=== PATIENT | female | born 1945 | race Caucasian/White ===

== ENCOUNTER 2019-06-13 04:31 | Emergency (ER) | payer OTHER ==
[2019-06-13 04:38] VITALS: BP 146/87; PULSE 81; TEMP 96.9; BMI 23.4
--- NOTE | 2019-06-13 04:38 | PDOC ---
Attending Attestation - Resident Resident Name: Laxmi Ralph - ED Attending Attestation I have performed the following: I have examined & evaluated the patient, The case was reviewed & discussed with the resident, I agree w/resident's findings & plan - HPI HPI: 06/13/19 04:56 Patient pulled out her tach collar; she was in the process of being weaned from the collar. Pt has no other complaints SHe was in the NH for a recent SAH, and right sided paralysis. She has no ability to consuct ADLs. SHe is accompanied by her hudband and paperwork from the NH which is providing some info. - Physicial Exam PE: 06/13/19 04:58 Pt is afebrile Trach ostomy is closed with a fleshy mass of tissue in the center of the hole. Pt will require ENT to place another one. - Medical Decision Making 06/13/19 04:59 We called one of the ENT docs, and they are unavailable to place the trach in. They are requesting that we transfer the patient. 06/13/19 05:00 WE have no ENT union organizer at this hospital/ 06/13/19 23:[address] Ishan DR of the patient at the [facility]. She agrees that pt can return to the NH, as she is breathing fine without the trach collar in place, as pt was supposed to be weaned off the collar. Pt will be seen by ENT at the [facility]. Pt's is ok with this plan. Pt stable for discharge back to the NH
--- NOTE | 2019-06-13 04:40 | PDOC ---
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 at bedside reported they have been trying to wean pt off vent for the last month, and all was well until staff at [facility] accidentally removed the trach. reported he believes the pt's current breathing pattern more labored than usual. He reported they have been keeping her on 5L O2 at [facility]. ROS - cannot perform, pt nonverbal, at bedside not present for event. PE Constitutional: Well-nourished, Well-developed, appearing stated age. HEENT: head is normocephalic, atraumatic. EOMI. PERRLA. Neck: supple. Full ROM. trach site noted, no surrounding erythema, no discharge , no sign of infection. Cardiovascular: regular heart rhythm. no murmurs. no pericardial friction rub. Respiratory: clear to auscultation bilaterally. no crackles, rhonchi or wheezing. no stridor. Gastrointestinal: soft, nontender. normal bowel sounds. no rebound, guarding, masses. Extremities: peripheral pulses intact. no lower extremity edema. Neurological: CN 2-12 grossly intact. moves all four extremities. Psych: awake, alert. follows commands. nonverbal. can shake head yes or no with repeated verbal stimulation. Medical Decision Making - Medical Decision Making 73 year old female with above PMH sent to ED from [facility] for Trach dislodgement. Initial Vital Signs Temp Pulse Resp BP Pulse Ox 96.9 F L 81 16 146/87 95 06/13/19 04:35 06/13/19 04:35 06/13/19 04:35 06/13/19 04:35 06/13/19 04:35 Afebrile. No tachycardia. No tachypnea. Mild hypertension. No hypoxia on room air. Labs ordered: CBC, CMP Imaging ordered: CXR Medications ordered: none Respiratory paged. Trach appears to be too new to replace the tube. Will call Dr. Hamlin to see if he is available. 06/13/19 04:50 Dr. Hamlin reported he is not available to come to ED today to evaluate pt. 06/13/19 05:04 Dr. Olmstead paged. 06/13/19 05:08 Dr. Alvarenga reported pt can be sent back to [facility], will have ENT evaluate her there. informed and agrees with plan for care. He reported he prefers to not replace the tube as she has been doing well without using it and has been progressing with speech and swallowing lately, and he is afraid to set her back with anesthesia. is very anxious, constantly massaging the patient's legs. 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 He reported he feels a lot of guilt and wants to make sure he makes the best decision for the patient and does not want to set her back any further. Risks/benefits discussed of transfer for urgent ENT eval, he reported he prefers to take the pt back to [facility] and have ENT F/U outpatient. Pt to be discharged back to [facility]. Discharge - Discharge Information Problems reviewed: Yes Clinical Impression/Diagnosis: Tracheostomy complication, unspecified Condition: Stable Disposition: HALFWAY FACILITY - Admission No - Follow up/Referral Referrals: Javid Hernandez MD [Primary Care Provider] - - Patient Discharge Instructions Additional Instructions: Dr. Olmstead reported that ENT will come to [facility] to evaluate patient. Return to the Emergency Department for difficulty breathing, chest pain, shortness of breath, lightheadedness, passing out, increasing lethargy or any other new, worsening or concerning symptoms. - Post Discharge Activity
== END 2019-06-13 06:14 ==
LOC: JER 04:31
DX: J95.09 Other tracheostomy complication (principal); I69.851 Hemiplegia and hemiparesis following other cerebrovascular disease affecting right dominant side; Z99.81 Dependence on supplemental oxygen; Z88.8 Allergy status to other drugs, medicaments and biological substances
CPT/HCPCS: 99282-25

== ENCOUNTER 2019-06-16 01:38 | Emergency (ER) | payer OTHER ==
--- NOTE | 2019-06-16 01:42 | PDOC ---
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 is at the bedside providing collateral history. He reports that the patient appears different than usual in that she has labored breathing and abdominal distention. She is at her neurologic baseline. History limited as patient is nonverbal. ROS: Unable to complete (patient nonverbal) PE: General: Awake, alert, and fully oriented, in no acute distress Head: No signs of trauma Eyes: EOMI, sclera anicteric ENT: Moist mucus membranes Neck: Normal ROM, supple Lungs: Lungs clear, Normal breath sounds, tachypnic Cardio: Regular rhythm, S1 and S2 present Abdomen: Soft, nondistended. No grimacing noted upon palpation. Extremities: Normal range of motion, Distal pulses present SKIN: Warm, Dry, normal turgor Neurologic: Cranial nerves II through XII grossly intact. Normal speech ED Course/MDM: DDX including but not limited to brain bleed, PE, ACS, SBO VS notable for tachypnea, but otherwise stable Patient unable to communicate at the bedside is very anxious Labs, EKG, CXR CT head CTA chest CT AP with IV contrast 06/16/19 01:42 EKG: rate 84, QTc 423, NSR CBC WBC 10.2 K/mm3 (4.0-10.0) H 06/16/19 02:10 RBC 4.09 M/mm3 (3.60-5.2) 06/16/19 02:10 Hgb 11.3 GM/dL (10.7-15.3) 06/16/19 02:10 Hct 34.9 % (32.4-45.2) 06/16/19 02:10 MCV 85.4 fl (80-96) 06/16/19 02:10 MCH 27.5 pg (25.7-33.7) 06/16/19 02:10 MCHC 32.2 g/dl (32.0-36.0) 06/16/19 02:10 RDW 16.7 % (11.6-15.6) H 06/16/19 02:10 Plt Count 294 K/MM3 (134-434) 06/16/19 02:10 MPV 8.2 fl (7.5-11.1) 06/16/19 02:10 Absolute Neuts (auto) 7.5 K/mm3 (1.5-8.0) 06/16/19 02:10 Neutrophils % 73.7 % (42.8-82.8) 06/16/19 02:10 Lymphocytes % 14.3 % (8-40) 06/16/19 02:10 Monocytes % 5.3 % (3.8-10.2) 06/16/19 02:10 Eosinophils % 5.8 % (0-4.5) H 06/16/19 02:10 Basophils % 0.9 % (0-2.0) 06/16/19 02:10 Nucleated RBC % 0 % (0-0) 06/16/19 02:10 Mild leukocytosis CMP Sodium 148 mmol/L (136-145) H 06/16/19 02:10 Potassium 3.9 mmol/L (3.5-5.1) 06/16/19 02:10 Chloride 111 mmol/L (98-107) H 06/16/19 02:10 Carbon Dioxide 34 mmol/L (21-32) H 06/16/19 02:10 Anion Gap 3 MMOL/L (8-16) L 06/16/19 02:10 BUN 35.5 mg/dL (7-18) H 06/16/19 02:10 Creatinine 0.5 mg/dL (0.55-1.3) L 06/16/19 02:10 Est GFR (CKD-EPI)AfAm 112.86 06/16/19 02:10 Est GFR (CKD-EPI)NonAf 97.37 06/16/19 02:10 Random Glucose 106 mg/dL (74-106) 06/16/19 02:10 Calcium 10.1 mg/dL (8.5-10.1) 06/16/19 02:10 Total Bilirubin 0.1 mg/dL (0.2-1) L 06/16/19 02:10 AST 26 U/L (15-37) 06/16/19 02:10 ALT 58 U/L (13-61) 06/16/19 02:10 Alkaline Phosphatase 144 U/L (45-117) H 06/16/19 02:10 Creatine Kinase 24 U/L (26-192) L 06/16/19 02:10 Troponin I < 0.02 ng/ml (0.00-0.05) 06/16/19 02:10 Total Protein 6.2 g/dl (6.4-8.2) L 06/16/19 02:10 Albumin 2.9 g/dl (3.4-5.0) L 06/16/19 02:10 Lipase 308 U/L (73-393) 06/16/19 02:10 Electrolytes unremarkable Tpn undetectable Normal Cr No transaminitis CT Head as read by imaging web solutions architect: "FINDINGS: Patient has had a left craniectomy without bone flap replacement. Aneurysm clip is noted in the left temporal region. There is bulging of the left temporoparietal region through the craniectomy defect. There is abundant left hemispheric vasogenic edema. Within the left parietal deep white matter (within the vasogenic edema) are several foci of hyperdensity most likely representing hemorrhage. The largest focus measures 8.7 mm x 2 mm. There are currently no prior scans available for comparison. Therefore I cannot determine whether these foci of blood or recurrent, residual, or new. There is no midline shift. Right hemisphere and cerebellum are unremarkable." Radiologist unable to determine whether the findings are acute. Decision made to transfer patient to [facility] where her neurosurgical procedures were performed by Dr. Cazares. We will make sure a CD of her imaging studies are provided for comparison to previous studies. Call to [facility] transfer 06/16/19 04:[address] Freeman, neurosurgical fellow, who accepted patient for transfer on behalf of attending Dr. Browning Patient's signed consent form on behalf of patient. 06/16/19 05:11 CTA Chest as read by imaging web solutions architect: "FINDINGS: Good opacification of the pulmonary arteries is seen into the segmental branches. No intraluminal filling defects. The aorta also shows normal opacification without dissection. No carotid dissection. Calcifications are seen in both carotid arteries near the carotid bulbs. The anterior mediastinal fat is well preserved. No cardiomegaly. Left ventricular hypertrophy noted. No pericardial effusion. No hilar or mediastinal adenopathy. Small shotty lymph nodes are seen throughout the middle mediastinum. Lungs are clear without peripheral consolidation, pneumothorax or other interstitial changes. Small left pleural effusion. Thyroid gland is normal in appearance. No axillary adenopathy. Benign hepatic cyst in the left lobe. Gastrostomy tube noted. Right nephrolithiasis without hydronephrosis. No adrenal masses. Upper abdomen is otherwise unremarkable. IMPRESSION No evidence of pulmonary embolus. Although the heart is of normal size there is left ventricular hypertrophy. No evidence of pulmonary venous hypertension or pulmonary edema. A small left pleural effusion is noted. Right nephrolithiasis without hydronephrosis. Gastrostomy tube noted in good position. The upper abdomen is otherwise unremarkable." CTAP as read by imaging web solutions architect: "FINDINGS: Lung bases are clear. The visualized cardiac chambers are normal size and configuration. Small left hepatic lobe cyst is noted. There are tiny nonobstructing bilateral renal stones. Normal gallbladder, pancreas, spleen, adrenal glands . PEG tube balloon is noted in the gastric lumen. The abdominal small and large bowel are normal. There is no aortic aneurysm. There is no significant retroperitoneal lymphadenopathy. The pelvic small and large bowel are normal. There is no evidence of appendicitis, although an appendicolith is noted. The uterus and adnexal structures are normal. Urinary bladder is unremarkable. There is no pelvic free fluid. No discrete pelvic lymphadenopathy is identified. IMPRESSION: Tiny nonobstructing bilateral renal stones. No evidence of acute pathology." Past History - Past Medical History Allergies/Adverse Reactions: Allergies Allergy/AdvReac Type Severity Reaction Status Date / Time phenytoin [From Dilantin] Allergy Verified 06/16/19 02:49 - Psycho Social/Smoking Cessation Hx Smoking History: Never smoked Have you smoked in the past 12 months: No Hx Alcohol Use: No Drug/Substance Use Hx: No ED Treatment Course - LABORATORY CBC & Chemistry Diagram: 06/16/19 02:10 06/16/19 02:10 Discharge - Discharge Information Problems reviewed: Yes Clinical Impression/Diagnosis: Brain bleed Condition: Guarded Disposition: TRANSFER ACUTE CARE/OTHER HOSP - Follow up/Referral Referrals: Javid Hernandez MD [Primary Care Provider] - - Patient Discharge Instructions - Post Discharge Activity - Transfer to Acute Care Facility Receiving Facility Name: [facility]
--- NOTE | 2019-06-16 01:44 | PDOC ---
Attending Attestation - Resident Resident Name: Lesley Billingsley - ED Attending Attestation I have performed the following: I have examined & evaluated the patient, The case was reviewed & discussed with the resident, I agree w/resident's findings & plan - HPI HPI: 06/16/19 03:20 see resident hpi - Physicial Exam PE: 06/16/19 03:20 agree with resident exam - Medical Decision Making 06/16/19 03:21 73-year-old female with history of subarachnoid bleed currently in a assisted facility arriving by ambulance due to 's concerns regarding possible increased temp and abdominal discomfort Due to patient's history and exam CT of the head as well as CTA of the chest for pulmonary embolism and CT abdomen and pelvis planned Labs consistent with mildly elevated sodium level as well as elevated BUN likely consistent with mild dehydration
[2019-06-16 02:01] VITALS: TEMP 98.2; BMI 23.1
[2019-06-16 02:21] LABS: BASO % 0.9 % (0-2.0); EOS % 5.8 % (0-4.5); HEMATOCRIT 34.9 % (32.4-45.2); HEMOGLOBIN 11.3 GM/dL (10.7-15.3); LYMPH % 14.3 % (8-40); MCH 27.5 pg (25.7-33.7); MCHC 32.2 g/dl (32.0-36.0); MEAN CELL VOLUME 85.4 fl (80-96); MEAN PLT VOLUME 8.2 fl (7.5-11.1); MONO % 5.3 % (3.8-10.2); NEUT % 73.7 % (42.8-82.8); PLATELET COUNT 294 K/MM3 (134-434); RBC 4.09 M/mm3 (3.60-5.2); RDW 16.7 % (11.6-15.6); WHITE BLOOD COUNT 10.2 K/mm3 (4.0-10.0)
[2019-06-16 02:34] LABS: INR 1.02 (0.83-1.09)
[2019-06-16 02:48] LABS: ALBUMIN 2.9 g/dl (3.4-5.0); BILIRUBIN,TOTAL 0.1 mg/dL (0.2-1); BLOOD UREA NITROGEN 35.5 mg/dL (7-18); CALCIUM 10.1 mg/dL (8.5-10.1); CREATININE 0.5 mg/dL (0.55-1.3); POTASSIUM 3.9 mmol/L (3.5-5.1); TOT PROT 6.2 g/dl (6.4-8.2)
[2019-06-16 02:50] LABS: LIPASE 308 U/L (73-393)
[2019-06-16 03:31] LABS: EPI CELLS 10.9 /HPF (0-5/HPF); HYALINE CASTS 23 /lpf (0-8); URINE APPEARANCE CLEAR; URINE BACTERIA 1.7 /hpf (NEGATIVE); URINE BILIRUBIN NEGATIVE (NEGATIVE); URINE COLOR YELLOW; URINE GLUCOSE (UA) NEGATIVE (NEGATIVE); URINE KETONE NEGATIVE (NEGATIVE); URINE LEUK ESTERASE 1+ (NEGATIVE); URINE NITRITE NEGATIVE (NEGATIVE); URINE PROTEIN 1+ (NEGATIVE); URINE RBC 4 /hpf (0-4); URINE UROBILINOGEN 0.2 mg/dL (0.2-1.0); URINE WBC 28 /hpf (0-5)
[2019-06-16 05:16] VITALS: BP 135/79; PULSE 73
--- NOTE | 2019-06-17 05:11 | EKG ---
Test Reason : Blood Pressure : / mmHG Vent. Rate : 082 BPM Atrial Rate : 082 BPM P-R Int : 130 ms QRS Dur : 068 ms QT Int : 360 ms P-R-T Axes : 072 069 080 degrees QTc Int : 420 ms POOR DATA QUALITY, INTERPRETATION MAY BE ADVERSELY AFFECTED NORMAL SINUS RHYTHM NORMAL ECG NO PREVIOUS ECGS AVAILABLE Confirmed by WILLIS ISLAS MD ([id number]) on 06/17/2019 5:10:54 AM Referred By: Confirmed By:WILLIS ISLAS MD
== END 2019-06-16 05:20 | disposition short-term general hospital (02) ==
LOC: JER 01:38
DX: I61.9 Nontraumatic intracerebral hemorrhage, unspecified (principal); R47.01 Aphasia; J90 Pleural effusion, not elsewhere classified; Z93.1 Gastrostomy status; Z88.8 Allergy status to other drugs, medicaments and biological substances
CPT/HCPCS: 36415; 70450-TC; 71275-TC; 74177-TC; 80053; 81003; 82550; 83690; 84484; 85025; 85610; 87086; 93005; 93010; 99284-25

== ENCOUNTER 2019-06-23 11:01 | Inpatient (IN) | payer OTHER ==
--- NOTE | 2019-06-23 11:14 | PDOC ---
History of Present Illness - General Chief Complaint: Lethargy Stated Complaint: Weakness/FEVER Time Seen by Provider: 06/23/19 11:14 - History of Present Illness Initial Comments: 06/23/19 11:16 73 year old female with PMH recent L sided craniectomy s/p brain aneurysm bleed (03/2019) from [facility] who presents with some changes in baseline as noticed by her . The patient at baseline is nonverbal with R sided deficit, unable to follow commands. Her noticed that she hasn't been closing her mouth and opening her eyes as normal. The patient was sent to [facility] 1 day ago and has bounced around to several facilities due to husbands insistence. The patient cannot provide history. Patient previously had a trach tube that was removed and currently has a PEG tube ROS - unable to be obtained PE GENERAL: Awake, alert, and fully oriented, in no acute distress HEAD: No signs of trauma, normocephalic, atraumatic EYES: PERRLA, EOMI, sclera anicteric, conjunctiva clear ENT: dry mucosa NECK: Normal ROM, supple LUNGS: No distress, speaks full sentences, clear to auscultation bilaterally HEART: Regular rate and rhythm, normal S1 and S2, no murmurs, rubs or gallops, peripheral pulses normal and equal bilaterally. ABDOMEN: Soft, nontender, PEG tube in place, c/d/i, No guarding, no rebound. No masses EXTREMITIES : R sided deficit,no edema. No clubbing or cyanosis. NEUROLOGICAL: unable to obtain SKIN: Warm, Dry, normal turgor, no rashes or lesions noted MDM DDX including but not limited to: r/o infectious vs intracranial pathology ED Course: UA with UTI will dose ceftriaxone otherwise unremarkable plan to admit for altered status 2/[address] Jacobsen called to inform of CT result. No changes since prior on 06/16 Nuha De Los Santos PGY2 Emergency Medicine 06/23/19 13:55 06/23/19 14:00 Past History - Past Medical History Allergies/Adverse Reactions: Allergies Allergy/AdvReac Type Severity Reaction Status Date / Time phenytoin [From Dilantin] Allergy Verified 06/16/19 02:49 COPD: No - Immunization History Td Vaccination: Yes TDAP Vaccination: Yes Immunization Up to Date: Yes - Psycho Social/Smoking Cessation Hx Smoking History: Never smoked Have you smoked in the past 12 months: No Hx Alcohol Use: No Drug/Substance Use Hx: No ED Treatment Course - LABORATORY CBC & Chemistry Diagram: 06/23/19 11:44 06/23/19 11:44 Discharge - Discharge Information Problems reviewed: Yes Clinical Impression/Diagnosis: Urinary tract infection Condition: Stable - Admission Yes - Follow up/Referral Referrals: Javid Hernandez MD [Primary Care Provider] - - Patient Discharge Instructions - Post Discharge Activity
[2019-06-23 12:08] LABS: BASO % 0.3 % (0-2.0); EOS % 3.3 % (0-4.5); HEMATOCRIT 38.6 % (32.4-45.2); HEMOGLOBIN 12.5 GM/dL (10.7-15.3); LYMPH % 9.8 % (8-40); MCH 27.5 pg (25.7-33.7); MCHC 32.4 g/dl (32.0-36.0); MEAN PLT VOLUME 8.9 fl (7.5-11.1); MONO % 5.6 % (3.8-10.2); PLATELET COUNT 318 K/MM3 (134-434); RBC 4.54 M/mm3 (3.60-5.2); RDW 17.1 % (11.6-15.6); VENOUS PC02 41.3 mmHg (38-52); VENOUS PH 7.44 (7.31-7.41); VENOUS PO2 67.4 mmHg (28-48); WHITE BLOOD COUNT 11.8 K/mm3 (4.0-10.0)
[2019-06-23 12:37] LABS: BILIRUBIN,TOTAL 0.2 mg/dL (0.2-1); BLOOD UREA NITROGEN 35.8 mg/dL (7-18); CALCIUM 10.3 mg/dL (8.5-10.1); CREATININE 0.6 mg/dL (0.55-1.3); POTASSIUM 4.2 mmol/L (3.5-5.1); TOT PROT 6.6 g/dl (6.4-8.2)
[2019-06-23] MEDS ORDERED: amLODIPine BESYLATE 5 MG TABLET (FP) PO ONE (12:44)
[2019-06-23 12:45] LABS: INR 1.05 (0.83-1.09); PROTHROMBIN TIME (PATIENT) 12.4 SEC (9.7-13.0)
[2019-06-23 12:48] LABS: ACTIVATED PTT 32.7 SECONDS (25.2-36.5)
[2019-06-23 12:53] LABS: EPI CELLS 0.6 /HPF (0-5/HPF); HYALINE CASTS 17 /lpf (0-8); URINE APPEARANCE TURBID; URINE BACTERIA 4308.6 /hpf (NEGATIVE); URINE BILIRUBIN NEGATIVE (NEGATIVE); URINE COLOR YELLOW; URINE GLUCOSE (UA) NEGATIVE (NEGATIVE); URINE KETONE NEGATIVE (NEGATIVE); URINE LEUK ESTERASE 3+ (NEGATIVE); URINE NITRITE POSITIVE (NEGATIVE); URINE PROTEIN TRACE (NEGATIVE); URINE RBC 23 /hpf (0-4); URINE UROBILINOGEN 0.2 mg/dL (0.2-1.0); URINE WBC 719 /hpf (0-5)
[2019-06-23] MEDS ORDERED: CEFTRIAXONE 1 GM in DEXTROSE 5%-WATER - 50 ML IVPB SCH (13:15)
--- NOTE | 2019-06-23 13:32 | PDOC ---
Documentation entered by Zoraida Islas SCRIBE, acting as scribe for Megan Patel MD. Megan Patel MD: This documentation has been prepared by the scribe, Zoraida Islas SCRIBE, under my direction and personally reviewed by me in its entirety. I confirm that the documentation accurately reflects all work, treatment, procedures, and medical decision making performed by me. Attending Attestation - Resident Resident Name: [email or web address] - HPI HPI: 06/23/19 13:00 The patient is a 73-year-old female with a past medical history (provided by the ) significant for Aneurysm bleed (March 26) s/p surgery at [facility] ( pending cranioplasty surgery) who presents to the emergency department from [facility] via EMS with altered mental status per . The reports, the patient is unable to keep her mouth closed and reports shes lethargic. The reports additional complaints of unstable BP to 160s, compared to the baseline of 128. The patient has had multiple visits and revisitation to ER and facilities for change in mental status reported by the . - Physicial Exam PE: 06/23/19 13:04 GENERAL: In no acute distress. LUNGS: Breath sounds equal, clear to auscultation bilaterally. HEART: Regular rate and rhythm. ABDOMEN: Soft, nontender. NEUROLOGICAL: Doesnt follow commands, moves left arm and leg, opens eyes spontaneously, opens mouth spontaneously. - Medical Decision Making 06/23/19 13:19 pt presents to the ED after brought in by her for altered mental status. As per the , she is more lethargic and less awake than usual. Labs show UTI. Will admit to medicine for treatment of her UTI. 06/23/19 13:32
[2019-06-23] MEDS ORDERED: amLODIPine BESYLATE 5 MG TABLET (FP) ONE (14:20)
[2019-06-23] MEDS ORDERED: ACETAMINOPHEN 650 MG/20.3 ML ORAL SOLUTION (CUPS) GT PRN (14:52)
--- NOTE | 2019-06-23 14:54 | HP ---
Admitting History and Physical - Primary Care Physician PCP: Landry Hilton - Admission Chief Complaint: HEAD TRAUMA/UTI History of Present Illness: 73 year old female with PMH recent L sided cranectomy s/p brain aneurysm bleed ( 03/2019) from [facility] who presents with some changes in baseline as noticed by her . The patient at baseline is nonverbal with R sided deficit, unable to follow commands. Her noticed that she hasn't been closing her mouth and opening her eyes as normal. The patient was sent to [facility] 1 day ago and has bounced around to several facilities due to husbands insistence. The patient cannot provide history. Patient previously had a trach tube that was removed and currently has a PEG tube History Source: Medical Record Limitations to Obtaining History: Clinical Condition - Past Medical History IN HOME CAREGIVER: Yes: CVA Cardiovascular: Yes: Other - Smoking History Smoking history: Never smoked Have you smoked in the past 12 months: No - Alcohol/Substance Use Hx Alcohol Use: No Home Medications - Allergies Allergies/Adverse Reactions: Allergies Allergy/AdvReac Type Severity Reaction Status Date / Time phenytoin [From Dilantin] Allergy Verified 06/23/19 15:58 Review of Systems - Review of Systems Constitutional: reports: Weakness HENT: reports: Other (trauma) Genitourinary: reports: Incontinence Musculoskeletal: reports: Muscle Weakness Integumentary: reports: Other Neurological: reports: Dizziness, Pre-Existing Deficit, Unsteady Gait, Weakness Physical Examination Vital Signs: Vital Signs Temperature 98.9 F 06/23/19 11:05 Pulse Rate 95 H 06/23/19 11:05 Respiratory Rate 18 06/23/19 11:05 Blood Pressure 153/94 06/23/19 11:05 O2 Sat by Pulse Oximetry (%) 97 06/23/19 11:14 Constitutional: Yes: Mild Distress HENT: Yes: Other (positive soft craniotomy site,) Neck: Yes: Other (tracheostomy scar midline clean) Cardiovascular: Yes: Regular Rate and Rhythm Gastrointestinal: Yes: Other (gtube) Renal/: Yes: Other Musculoskeletal: Yes: Muscle Weakness Edema: No Neurological: Yes: Pre-Existing Deficit ...Motor Strength: LLE, RLE Psychiatric: Yes: Other Labs: CBC, BMP 06/23/19 11:44 06/23/19 11:44 Problem List - Problems (1) H/O craniotomy Code(s): Z98.890 - OTHER SPECIFIED POSTPROCEDURAL STATES (2) Urinary tract infection Code(s): N39.0 - URINARY TRACT INFECTION, SITE NOT SPECIFIED (3) Tracheostomy complication, unspecified Code(s): J95.00 - UNSPECIFIED TRACHEOSTOMY COMPLICATION Assessment/Plan iv abx neuro/pt eval ivf restart feeds neuro check fall risks swallow eval oral hygeine
--- NOTE | 2019-06-23 17:27 | EKG ---
Test Reason : Blood Pressure : / mmHG Vent. Rate : 086 BPM Atrial Rate : 086 BPM P-R Int : 134 ms QRS Dur : 074 ms QT Int : 366 ms P-R-T Axes : 058 026 067 degrees QTc Int : 437 ms SINUS RHYTHM WITH OCCASIONAL PREMATURE VENTRICULAR COMPLEXES OTHERWISE NORMAL ECG WHEN COMPARED WITH ECG OF 16-JUN-2019 02:41, PREMATURE VENTRICULAR COMPLEXES ARE NOW PRESENT BASELINE ARTIFACT Confirmed by GOKUL SAPP, MELISSA ([id number]) on 06/23/2019 5:26:36 PM Referred By: Confirmed By:MELISSA HODGSON MD
[2019-06-24 07:06] LABS: HEMATOCRIT 34.7 % (32.4-45.2); HEMOGLOBIN 11.4 GM/dL (10.7-15.3); MCH 27.6 pg (25.7-33.7); MCHC 32.8 g/dl (32.0-36.0); MEAN CELL VOLUME 84.1 fl (80-96); MEAN PLT VOLUME 8.5 fl (7.5-11.1); PLATELET COUNT 282 K/MM3 (134-434); RBC 4.13 M/mm3 (3.60-5.2); RDW 17.5 % (11.6-15.6)
[2019-06-24 07:43] LABS: ALBUMIN 2.8 g/dl (3.4-5.0); BILIRUBIN,TOTAL 0.2 mg/dL (0.2-1); BLOOD UREA NITROGEN 36.7 mg/dL (7-18); CREATININE 0.6 mg/dL (0.55-1.3); MAGNESIUM 2.5 mg/dL (1.8-2.4); POTASSIUM 3.6 mmol/L (3.5-5.1); TOT PROT 6.1 g/dl (6.4-8.2)
[2019-06-24] MEDS ORDERED: cefTRIAXone SODIUM 1 GM VIAL ONE (09:11)
[2019-06-24] MEDS ORDERED: DEXTROSE 5%-WATER - 50 ML IVPB ONE (09:12)
[2019-06-24] MEDS: CEFTRIAXONE 1 GM in DEXTROSE 5%-WATER - 50 ML IVPB SCH (09:26)
--- NOTE | 2019-06-24 10:33 | CON.NEURO ---
Consult Consult Specialty:: Sebastian Referred by:: Luna - History of Present Illness History of Present Illness: 73 years old very sad case of woman with very complicated cerebral history Started about six month ago with bells palsy She went to a neurologist in [place] and then CT head was abnormal She consulted with neurologist at [place] Patient had MRA and saw a neurosurgeon due to left Cerebral Aneurysm Patient was suppose to get angiogram 04/06/2019 03/26/2019 she collapsed brain aneurysm rupture 911 to [facility] and flew to [facility] 7 Hours surgery complicated stay and neurology and VEEG patient was given yesterday baclofen probably had seizure Currently on Keppra and Vimpat No family hsitory of seizure - History Source History Provided By: Family Member, Medical Record Limitations to Obtaining History: Clinical Condition - 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 Cardio/Vascular: Yes: Other ...: No - Alcohol/Substance Use Hx Alcohol Use: No - Smoking History Smoking history: Never smoked Have you smoked in the past 12 months: No Home Medications - Allergies Allergies/Adverse Reactions: Allergies Allergy/AdvReac Type Severity Reaction Status Date / Time phenytoin [From Dilantin] Allergy Verified 06/23/19 15:58 - Home Medications Home Medications: Ambulatory Orders Aa/Hydrolyzed Collagen, Whey [Lps 15-30 Liquid] 960 ml GT DAILY 06/23/19 Acetaminophen [Tylenol] 650 mg PO Q6H PRN 06/23/19 Amlodipine Besylate [Norvasc -] 5 mg PO DAILY 06/23/19 Bacitracin - [Bacitracin Topical Ointment -] 1 appful TP DAILY 06/23/19 Heparin Sodium,Porcine/Pf [Heparin Sod 5,000 Unit/0.5 ml] 5,000 unit SQ Q8H 07/12 Lacosamide Liquid [Vimpat Liquid -] 100 mg PO BID 06/23/19 Levetiracetam 1,250 mg PO Q12H 06/23/19 Pantoprazole Sodium 40 mg PO DAILY 06/23/19 Polyethylene Glycol 3350 [Miralax (For Bowel Prep) -] 17 gm PO DAILY 06/23/19 Polyvinyl Alcohol/Povidone/Pf [Refresh Classic Eye Drops] 1 drop OU Q4H Sennosides [Senna Lax] 17.2 mg PO DAILY 06/23/19 Family Medical History Family History: Unable to Obtain Physical Exam-Neuro Vital Signs: Vital Signs Temperature 97.8 F 06/24/19 05:43 Pulse Rate 78 06/24/19 05:43 Respiratory Rate 06/24/19 05:43 Blood Pressure 131/63 06/24/19 05:43 O2 Sat by Pulse Oximetry (%) 96 06/23/19 21:00 Constitutional: Yes: Well Nourished Neck: Yes: WNL Labs: CBC, BMP 06/24/19 06:50 06/24/19 06:50 INR, PTT INR 1.05 (0.83-1.09) 06/23/19 11:44 - Neuro Exam Level Of Consciousness: Yes: Alert, Oriented to Person Eyes: Yes: PERRLA Speech: Broca's Aphasia Dominant Hand: Right Cranial Nerves II-XII Intact: No Gag: Present DTR's: 2+ Right Bicep, 2+ Right Brachioradialis, 2+ Right Achilles Babinski: Present Motor Strength: 0/5: Right Arm, 2/5: Right Leg, 4/5: Left Arm, Left Leg Gait: Deferred Imaging - Results Cat Scan: Image Reviewed Problem List - Problems (1) Epilepsy Assessment/Plan: 1. Transfer to Epilepsy monitoring unit on 2. VEEG 16 channel 3. Seizure precautions 4. Increase Vimpat 150 mg po q12 5. decrease keppra 1000 mg po q12 6. Ativan prn seiuzre 7.NO BCALOFEN NO TRAMADOL will give her seizure 8. Aspiration precautions 9. Speech and swallow eval 10. One dosage of Decadron 11. GI prophylaxis 12. OK to SQ Heparin 13. PT 14. SCD units I spent 55 minutes with the Oswaldo Yost Thanks Hemalatha Cortes MD Code(s): G40.909 - EPILEPSY, UNSP, NOT INTRACTABLE, WITHOUT STATUS EPILEPTICUS
--- NOTE | 2019-06-24 11:44 | PN ---
Progress Note, Physician Chief Complaint: AMS UTI History of Present Illness: NAD baseline non verbal - Current Medication List Current Medications: Active Medications Acetaminophen (Tylenol Oral Solution -) 650 mg GT Q6H PRN PRN Reason: FEVER Ceftriaxone Sodium 1 gm/ (Dextrose) 50 mls @ 100 mls/hr IVPB DAILY FRANKIE; Protocol Last Admin: 06/24/19 09:26 Dose: 100 mls/hr - Objective Vital Signs: Vital Signs Temperature 98.6 F 06/24/19 10:00 Pulse Rate 77 06/24/19 10:00 Respiratory Rate 18 06/24/19 10:00 Blood Pressure 124/69 06/24/19 10:00 O2 Sat by Pulse Oximetry (%) 95 06/24/19 09:00 Constitutional: Yes: Well Nourished, No Distress, Calm Cardiovascular: Yes: Regular Rate and Rhythm Respiratory: Yes: Regular Gastrointestinal: Yes: Normal Bowel Sounds, Soft Genitourinary: Yes: Incontinence Musculoskeletal: Yes: Other (generalized atrophy) Extremities: Yes: WNL Edema: No Peripheral Pulses WNL: Yes Neurological: Yes: Pre-Existing Deficit Labs: CBC, BMP 06/24/19 06:50 06/24/19 06:50 INR, PTT INR 1.05 (0.83-1.09) 06/23/19 11:44 Problem List - Problems (1) AMS (altered mental status) Assessment/Plan: -CT head unremarkable -Neurology consult -likely 2/2 to metabolic encephalopathy Problems reviewed: Yes Code(s): R41.82 - ALTERED MENTAL STATUS, UNSPECIFIED (2) H/O craniotomy Problems reviewed: Yes Code(s): Z98.890 - OTHER SPECIFIED POSTPROCEDURAL STATES (3) Urinary tract infection Assessment/Plan: -UC: Microbiology 06/23/19 12:05 Urine - Urine Nicholson Urine Culture - Preliminary Lactose Fermenting Neg Bacilli Pending Organism -ID consult -IV rocephin -afebrile -Leukocytosis resolved Problems reviewed: Yes Code(s): N39.0 - URINARY TRACT INFECTION, SITE NOT SPECIFIED (4) Hypernatremia Assessment/Plan: -Nephrology consult -monitor trend Problems reviewed: Yes Code(s): E87.0 - HYPEROSMOLALITY AND HYPERNATREMIA (5) Metabolic encephalopathy Problems reviewed: Yes Code(s): G93.41 - METABOLIC ENCEPHALOPATHY Assessment/Plan see problem list
[2019-06-24] MEDS ORDERED: POLYETHYLENE GLYCOL 3350 255 GM BTL PO SCH (11:45)
[2019-06-24] MEDS ORDERED: levETIRAcetam 500 MG TABLET (FP) PO SCH (11:45)
[2019-06-24] MEDS ORDERED: Lacosamide 50 MG/5 ML ORAL SOLUTION UNIT CUPS PO SCH (11:45)
[2019-06-24] MEDS ORDERED: POLYETHYLENE GLYCOL 3350 119 GM BTL PO SCH (12:46)
[2019-06-24] MEDS: PANTOPRAZOLE SOD 40 MG SUSPENSION PACKET NGT SCH (13:05)
[2019-06-24] MEDS: amLODIPine BESYLATE 5 MG TABLET (FP) PO SCH (13:07)
[2019-06-24] MEDS: HEPARIN NA (PORCINE) 5,000 UNITS/ML 1ML VIAL SQ SCH ×2 (13:08→21:25)
--- NOTE | 2019-06-24 14:56 | CONSULT ---
Admitting History and Physical - Primary Care Physician PCP: Paula Carrasco - Admission History of Present Illness: 73 year old female with PMH recent L sided craniectomy s/p brain aneurysm bleed (03/2019),nonverbal with R sided deficit, unable to follow commands, healing stoma/trach tube, has a PEG tube admitted from [facility] with change in status. 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
--- NOTE | 2019-06-24 15:10 | PN ---
Progress Note (short form) - Note Progress Note: ID consult d/w at [facility] who provided much of the history imp/reccd sent from [place] with lethargy called 911 he is very unhappy with the NH care and is looking for a new facility for his recently d/marc 06/07 from LTAC to [place] has been admitted to [facility] since then from [facility]-06/16 to 06/22 [facility] in 03/26,transferred to [facility], from there ltach on 04/26 to 06/07, then [place] no fevers, reports she is still somewhat lethargic possible UTI f/u cultures continue rocephin Problem List - Problems (1) Urinary tract infection Code(s): N39.0 - URINARY TRACT INFECTION, SITE NOT SPECIFIED (2) H/O craniotomy Code(s): Z98.890 - OTHER SPECIFIED POSTPROCEDURAL STATES
--- NOTE | 2019-06-24 15:35 | CONSULT ---
Admitting History and Physical - Primary Care Physician PCP: Paula Carrasco - Admission History of Present Illness: 73 year old female with PMH recent L sided craniectomy s/p brain aneurysm bleed (03/2019),nonverbal with R sided deficit, unable to follow commands, healing stoma/trach tube, has a PEG tube admitted from [facility] with change in status. Selected Entries 06/24/19 06/24/19 06/24/19 01:28 05:43 10:00 Lunch Temperature 98.4 F 97.8 F 98.6 F 06/24/19 14:40 Lunch NPO Temperature 98.4 F Laboratory Tests 06/23/19 06/24/19 11:44 06:50 WBC 11.8 H 9.0 History Source: Family Member, Medical Record Limitations to Obtaining History: Clinical Condition (Aphasia/Apraxia) - Past Medical History CLEANERS: Yes: CVA Cardiovascular: Yes: Other ...: No - Smoking History Smoking history: Never smoked Have you smoked in the past 12 months: No - Alcohol/Substance Use Hx Alcohol Use: No History - Admission Reason For Visit: BEHAVIORAL CHANGE; URINARY TRACT INFECTION - Diagnostics CT Scan: Report Reviewed - General Mental Status: Awake and Alert, Flat Affect Attention: Mild Impairment Ability to Follow Directions: Poor Head/Neck Control: Fair - Hearing Hearing: Functional Speech Evaluation - Communication Primary Language: WELSH Communication: Yes: Aphasia, Non-Communicable Oral Expression Ability: Yes: Severe Impairment, Non-Verbal, Non-Vocal - Speech Production Apraxia: Yes Able to Make Needs Known: Yes: Severely Impaired - Language/Auditory Comprehension Observation: Able to respond to yes/no queries: Yes (inconsistent/unreliable/ yes to 80% of questions), Yes/No Confusion: Yes, Comprehends Conversational Speech: Yes (maybe. Social speech/simple?), Benefits from Slow Speech: Yes, Benefits from Repetiton: Yes, Benefits from Increased Volume of Speech: No - Language/Verbal Expression Aphasia: Yes: Impaired Repetition, Apraxia Able to Communicate Wants and Needs: Yes: Severely Impaired Functional Communication Status: Yes: Severely Impaired - Memory/Perception Hemaniopsia: Yes: Right Visual Neglect: Yes: Right - Swallow Evaluation/Bedside Assessment Current Nutritional Intake: NPO, G Tube Dentition: Yes: Adequate Facial Symmetry at Rest: Facial Droop Right Lingual Movement: Unable to Perform Laryngeal Elevation: Impaired Laryngeal Movement: Reduced Excursion, Labored,delay initiation Labial Seal: WFL Oral Prep Time: Increased A-P Transit: Impaired Timing of Swallow: Delayed Coughing/Throat Clear: Yes (sip of water from tsp with responsive cough) Recommendations - Speech Evaluation, Impression/Plan Impression: Severe Receptive/expressive Aphasia/Severe Apraxia. Non verbal, Non vocal except for audible reflexive cough following sip of water from tsp. Swallow is delayed in onset. Shakes head yes/ sometimes no but not consistently accurate. Unable to generate or imitate gestures, can not write or copy letters , understand written words, point to word/comm board. educated on Aphasia/Apraxia/ speech/auditory comprehension/reading/writing deficits. 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
--- NOTE | 2019-06-24 17:02 | CONSULT ---
Consult Consult Specialty:: Nephrology Reason for Consultation:: hypernatremia - History of Present Illness Chief Complaint: altered mental status History of Present Illness: Pt is a 73 year old female with pmhx of brain aneurysm on 03/26, craniplasty in [facility], who presents with altered mental status. She was found to have hypernatremia and I was called to evaluate her. She is unable to give history. is at bedside and provided history. He is not happy with the alf care at all. He feels that she has improved dramatically between yesterday and today. She has a peg tube and gets tube feeding. She is being treated for possible UTI as well. 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 Cardio/Vascular: Yes: HTN, Other ...: No - Past Surgical History Past Surgical History: Yes: Craniotomy - Alcohol/Substance Use Hx Alcohol Use: No - Smoking History Smoking history: Never smoked Have you smoked in the past 12 months: No Home Medications - Allergies Allergies/Adverse Reactions: Allergies Allergy/AdvReac Type Severity Reaction Status Date / Time phenytoin [From Dilantin] Allergy Verified 06/23/19 15:58 - Home Medications Home Medications: Ambulatory Orders Aa/Hydrolyzed Collagen, Whey [Lps 15-30 Liquid] 960 ml GT DAILY 06/23/19 Acetaminophen [Tylenol] 650 mg PO Q6H PRN 06/23/19 Amlodipine Besylate [Norvasc -] 5 mg PO DAILY 06/23/19 Bacitracin - [Bacitracin Topical Ointment -] 1 appful TP DAILY 06/23/19 Heparin Sodium,Porcine/Pf [Heparin Sod 5,000 Unit/0.5 ml] 5,000 unit SQ Q8H 07/12 Lacosamide Liquid [Vimpat Liquid -] 100 mg PO BID 06/23/19 Levetiracetam 1,250 mg PO Q12H 06/23/19 Pantoprazole Sodium 40 mg PO DAILY 06/23/19 Polyethylene Glycol 3350 [Miralax (For Bowel Prep) -] 17 gm PO DAILY 06/23/19 Polyvinyl Alcohol/Povidone/Pf [Refresh Classic Eye Drops] 1 drop OU Q4H Sennosides [Senna Lax] 17.2 mg PO DAILY 06/23/19 Family Medical History Family History: Unable to Obtain Review of Systems Unable to obtain ROS, reason: pt is not verbal Physical Exam Vital Signs: Vital Signs Temperature 98.4 F 06/24/19 14:40 Pulse Rate 84 06/24/19 14:40 Respiratory Rate 22 H 06/24/19 14:40 Blood Pressure 123/73 06/24/19 14:40 O2 Sat by Pulse Oximetry (%) 95 06/24/19 09:00 Constitutional: Yes: Calm Eyes: Yes: Conjunctiva Clear HENT: Yes: Other (s/p cranetomy) Cardiovascular: Yes: S1, S2 Respiratory: Yes: CTA Bilaterally Gastrointestinal: Yes: Soft, Other (peg) Renal/: Yes: Incontinence Musculoskeletal: Yes: Muscle Weakness Edema: No Neurological: Yes: Pre-Existing Deficit Labs: CBC, BMP 06/24/19 06:50 06/24/19 06:50 Laboratory Tests 06/23/19 06/24/19 11:44 06:50 Sodium 146 H 147 H BUN 36.7 H Calcium 10.0 Imaging - Results Chest X-ray: Report Reviewed Problem List - Problems (1) AMS (altered mental status) Code(s): R41.82 - ALTERED MENTAL STATUS, UNSPECIFIED (2) H/O craniotomy Code(s): Z98.890 - OTHER SPECIFIED POSTPROCEDURAL STATES (3) Hypernatremia Code(s): E87.0 - HYPEROSMOLALITY AND HYPERNATREMIA (4) Urinary tract infection Code(s): N39.0 - URINARY TRACT INFECTION, SITE NOT SPECIFIED Assessment/Plan Current Medications Generic Name Dose Route Start Last Admin Trade Name Freq PRN Reason Stop Dose Admin Acetaminophen 650 mg 06/23/19 14:52 Tylenol Oral Solution - GT Q6H PRN FEVER Amino Acids 30 ml 06/24/19 17:30 Prosource No Carb Liquid Pkt PO BID@0800,1730 FRANKIE Amlodipine Besylate 5 mg 06/24/19 12:45 06/24/19 13:07 Norvasc - PO 5 mg DAILY FRANKIE Administration Bacitracin 1 applic 06/25/19 10:00 Bacitracin - TP DAILY FRANKIE Heparin Sodium (Porcine) 5,000 unit 06/24/19 14:00 06/24/19 13:08 Heparin - SQ 5,000 unit TID FRANKIE Administration Ceftriaxone Sodium 1 gm/ 50 mls @ 100 mls/hr 06/24/19 10:00 06/24/19 09:26 Dextrose IVPB 100 mls/hr DAILY FRANKIE Administration Protocol Lacosamide 100 mg 06/24/19 11:45 06/24/19 13:07 Vimpat Liquid - PO 100 mg BID FRANKIE Administration Levetiracetam 1,250 mg 06/24/19 11:45 06/24/19 13:03 Keppra - PO 1,250 mg BID FRANKIE Administration Pantoprazole Sodium 40 mg 06/24/19 12:45 06/24/19 13:05 Protonix Packets For Oral Suspension - NGT 40 mg DAILY FRAKNIE Administration Polyethylene Glycol 17 gm 06/24/19 12:46 Miralax (For Daily Use) - PO DAILY FRANKIE Senna 8.8 mg 06/24/19 22:00 Senna Oral Solution - PO HS FRANKIE Impression 1. hypernatremia 2. azotemia 3. brain aneurysm 4. r/o UTI 5. altered mental status 6. dehydration 7. hypercalcemia Plan - pt has a total free water deficit of about 1.5 liters (to get her sodium to 140) - will increase water flushes to 55 per hour and monitor sodium - will also give 500 cc of 1/2 ns - repeat labs in am - monitor bun as well - monitor calcium levels as well - asses volume status daily Dr Jiménez
[2019-06-24] MEDS ORDERED: POTASSIUM CHLORIDE ORAL LIQUID 20 MEQ/15 ML PEG ONE (17:13)
[2019-06-24] MEDS ORDERED: SODIUM CHLORIDE 0.45% 1,000 ML IV SCH (17:15)
[2019-06-24] MEDS: AMINO ACIDS/PROTEIN HYDROLYS 30 ML LIQUID.PKT PO SCH (17:25)
--- NOTE | 2019-06-24 19:44 | CONS ---
DATE OF CONSULTATION: DATE OF DICTATION: 06/24/2019 INFECTIOUS DISEASE CONSULTATION REQUESTING PHYSICIAN: Paula Carrasco MD. CONSULTING PHYSICIAN: Aditi Lemus MD. HISTORY OF PRESENT ILLNESS: This is a 73-year-old woman who is status post recent aneurysmal bleed in March 2019. This happened, she was airlifted to [facility] and she had surgery there, and she required a tracheostomy. She was then sent from there to an LTAC, where she resided from April 26 to June 07, at which time she was transferred to a custodial. [facility]. After arriving at [facility], she was seen in the emergency room twice and she was transferred to [facility] where she was admitted for observation per the , history is entirely from the , for several days. She was transferred back on the . He noted that she was more lethargic in the emergency room. In the custodial she apparently was unable to keep her mouth closed, and he called 911 and had the ambulance come. She is now being admitted for treatment of the UTI. Per the , they do not wish to return to this custodial. PAST MEDICAL HISTORY: Notable for the aneurysmal bleed and tracheostomy. She was recently decannulated. SOCIAL HISTORY: Prior to all this, she was living at home with her . ALLERGIES: She is allergic to DILANTIN. MEDICATION: Her current medication list includes senna, MiraLAX, pantoprazole, Keppra, Vimpat, subcutaneous heparin, bacitracin ointment, Norvasc. REVIEW OF SYSTEMS: Unremarkable. PHYSICAL EXAMINATION: General: She is awake, she appears responsive, she is nonverbal. Vital Signs: Temperature is 98.4, pulse is 84, blood pressure 123/73, respiratory rate 18, she is 68 kg. HEENT: Normocephalic. Eyes are anicteric. She has the left side of her head, her skull is missing. It is soft. That is where she had her craniotomy. Neck: The tracheostomy site, which is clean and dry. Lungs: Diminished breath sounds at the bases but are clear. Heart: Regular rate and rhythm. Abdomen: Soft, nontender. She has a G-tube in place. Extremities: Without edema. Skin: She has no skin breakdown. LABORATORY: Notable for white count of 11.8 on admission, this morning is 9, hemoglobin 11.4, platelets are 282. BUN and creatinine are 36 and 0.7, alkaline phosphatase is 135. Urinalysis is 3+ leukocytes with 719 white cells. Influenza screen is negative. Cultures are pending. Chest x-ray shows no evidence of infiltrate. IMPRESSION: 1. In summary, this is a 73-year-old woman admitted for possible urinary tract infection. Will follow up her cultures. Continue ceftriaxone. Family is requesting placement at a different custodial. This is being addressed. Case was discussed at length with the at bedside. 2. Status post recent aneurysmal bleed. 3. Patient for rehabilitation. ADITI LEMUS M.D. [id number] MTDD
[2019-06-24] MEDS ORDERED: DEXAMETHASONE SOD PHOSPHATE 20 MG/5 ML VIAL IVPB ONE (20:22)
[2019-06-24] MEDS ORDERED: DEXAMETHASONE SOD PHOSPHATE 10 MG/1 ML VIAL IVPB ONE (20:45)
[2019-06-24] MEDS ORDERED: PT OWN MED DRAWER 7, Y5N ONE (21:10)
[2019-06-24] MEDS: Lacosamide 50 MG/5 ML ORAL SOLUTION UNIT CUPS PO SCH (21:24)
[2019-06-24] MEDS: levETIRAcetam 500 MG TABLET (FP) PO SCH (21:24)
[2019-06-24] MEDS ORDERED: SENNOSIDES 8.8 MG/5 ML BULK BOTTLE PO SCH (22:00)
[2019-06-25] MEDS: HEPARIN NA (PORCINE) 5,000 UNITS/ML 1ML VIAL SQ SCH (05:41)
--- NOTE | 2019-06-25 08:08 | PN ---
Progress Note, Physician - Current Medication List Current Medications: Active Medications Acetaminophen (Tylenol Oral Solution -) 650 mg GT Q6H PRN PRN Reason: FEVER Amino Acids (Prosource No Carb Liquid Pkt) 30 ml PO BID@0800,1730 [facility] Last Admin: 06/24/19 17:25 Dose: 30 ml Amlodipine Besylate (Norvasc -) 5 mg PO DAILY [facility] Last Admin: 06/24/19 13:07 Dose: 5 mg Bacitracin (Bacitracin -) 1 applic TP DAILY [facility] Heparin Sodium (Porcine) (Heparin -) 5,000 unit SQ TID [facility] Last Admin: 06/25/19 05:41 Dose: 5,000 unit Ceftriaxone Sodium 1 gm/ (Dextrose) 50 mls @ 100 mls/hr IVPB DAILY [facility]; Protocol Last Admin: 06/24/19 09:26 Dose: 100 mls/hr Lacosamide (Vimpat Liquid -) 150 mg PO BID [facility] Last Admin: 06/24/19 21:24 Dose: 150 mg Levetiracetam (Keppra -) 1,000 mg PO BID [facility] Last Admin: 06/24/19 21:24 Dose: 1,000 mg Pantoprazole Sodium (Protonix Packets For Oral Suspension -) 40 mg NGT DAILY [facility] Last Admin: 06/24/19 13:05 Dose: 40 mg Polyethylene Glycol (Miralax (For Daily Use) -) 17 gm PO DAILY [facility] Senna (Senna Oral Solution -) 8.8 mg PO HS [facility] Last Admin: 06/24/19 21:25 Dose: 8.8 mg - Objective Vital Signs: Vital Signs Temperature 98.8 F 06/25/19 04:22 Pulse Rate 91 H 06/25/19 04:22 Respiratory Rate 18 06/25/19 04:22 Blood Pressure 131/73 06/25/19 04:22 O2 Sat by Pulse Oximetry (%) 96 06/24/19 20:17 Cardiovascular: Yes: S1, S2 Respiratory: Yes: Regular, CTA Bilaterally Gastrointestinal: Yes: Normal Bowel Sounds, Soft Labs: CBC, BMP 06/24/19 06:50 INR, PTT INR 1.05 (0.83-1.09) 06/23/19 11:44 Assessment/Plan - Problems (1) AMS (altered mental status) Assessment/Plan: -CT head unremarkable -Neurology consult noted--EEG ordered -likely 2/2 to metabolic encephalopathy Problems reviewed: Yes Code(s): R41.82 - ALTERED MENTAL STATUS, UNSPECIFIED (2) H/O craniotomy Problems reviewed: Yes Code(s): Z98.890 - OTHER SPECIFIED POSTPROCEDURAL STATES (3) Urinary tract infection Assessment/Plan: -UC: Microbiology 06/23/19 12:05 Urine - Urine Nicholson Urine Culture - Preliminary Lactose Fermenting Neg Bacilli Group D Strep Or Entero Coccus 06/23/19 11:44 Blood - Peripheral Venous Blood Culture - Preliminary NO GROWTH OBTAINED AFTER 24 HOURS, INCUBATION TO CONTINUE FOR 4 DAYS. 06/23/19 11:41 Blood - Peripheral Venous Blood Culture - Preliminary NO GROWTH OBTAINED AFTER 24 HOURS, INCUBATION TO CONTINUE FOR 4 DAYS. -ID consult -IV rocephin -afebrile -Leukocytosis resolved Problems reviewed: Yes Code(s): N39.0 - URINARY TRACT INFECTION, SITE NOT SPECIFIED (4) Hypernatremia Assessment/Plan: -Nephrology consult -monitor trend--140 Problems reviewed: Yes Code(s): E87.0 - HYPEROSMOLALITY AND HYPERNATREMIA (5) Metabolic encephalopathy Problems reviewed: Yes Code(s): G93.41 - METABOLIC ENCEPHALOPATHY
[2019-06-25 08:12] LABS: ALBUMIN 2.7 g/dl (3.4-5.0); BILIRUBIN,TOTAL 0.1 mg/dL (0.2-1); BLOOD UREA NITROGEN 37.9 mg/dL (7-18); CALCIUM 9.7 mg/dL (8.5-10.1); CREATININE 0.5 mg/dL (0.55-1.3); MAGNESIUM 2.2 mg/dL (1.8-2.4); POTASSIUM 4.5 mmol/L (3.5-5.1); TOT PROT 6.2 g/dl (6.4-8.2)
[2019-06-25] MEDS ORDERED: cefTRIAXone SODIUM 1 GM VIAL ONE (08:45)
[2019-06-25] MEDS ORDERED: DEXTROSE 5%-WATER - 50 ML IVPB ONE (08:45)
[2019-06-25] MEDS: CEFTRIAXONE 1 GM in DEXTROSE 5%-WATER - 50 ML IVPB SCH (09:26)
[2019-06-25] MEDS: AMINO ACIDS/PROTEIN HYDROLYS 30 ML LIQUID.PKT PO SCH ×2 (09:27→17:55)
[2019-06-25] MEDS: amLODIPine BESYLATE 5 MG TABLET (FP) PO SCH (09:27)
[2019-06-25] MEDS: levETIRAcetam 500 MG TABLET (FP) PO SCH ×2 (09:27→22:33)
[2019-06-25] MEDS: PANTOPRAZOLE SOD 40 MG SUSPENSION PACKET NGT SCH (09:28)
[2019-06-25] MEDS: Lacosamide 50 MG/5 ML ORAL SOLUTION UNIT CUPS PO SCH ×2 (09:28→22:34)
[2019-06-25] MEDS ORDERED: BACITRACIN 15 GM TUBE TOPICAL OINTMENT TP SCH (10:00)
[2019-06-25] MEDS: ENOXAPARIN NA (PORCINE) 40 MG/0.4 ML DISP.SYRIN SQ SCH (10:38)
--- NOTE | 2019-06-25 16:56 | PN ---
Progress Note, Physician History of Present Illness: Pt seen and examined at bedside. No great change in mental status. at bedside. - Current Medication List Current Medications: Active Medications Acetaminophen (Tylenol Oral Solution -) 650 mg GT Q6H PRN PRN Reason: FEVER Amino Acids (Prosource No Carb Liquid Pkt) 30 ml PO BID@0800,1730 [facility] Amlodipine Besylate (Norvasc -) 5 mg PO DAILY [facility] Bacitracin (Bacitracin -) 1 applic TP DAILY [facility] Enoxaparin Sodium (Lovenox -) 40 mg SQ DAILY [facility] Last Admin: 06/25/19 10:38 Dose: 40 mg Ceftriaxone Sodium 1 gm/ (Dextrose) 50 mls @ 100 mls/hr IVPB DAILY [facility]; Protocol Lacosamide (Vimpat Liquid -) 150 mg PO BID [facility] Levetiracetam (Keppra -) 1,000 mg PO BID [facility] Pantoprazole Sodium (Protonix Packets For Oral Suspension -) 40 mg NGT DAILY [facility] Polyethylene Glycol (Miralax (For Daily Use) -) 17 gm PO DAILY [facility] Senna (Senna Oral Solution -) 8.8 mg PO HS [facility] - Objective Vital Signs: Vital Signs Temperature 98.4 F 06/25/19 16:22 Pulse Rate 87 06/25/19 16:22 Respiratory Rate 20 06/25/19 16:22 Blood Pressure 125/75 06/25/19 16:22 O2 Sat by Pulse Oximetry (%) 95 06/25/19 09:00 Constitutional: Yes: Calm Eyes: Yes: Conjunctiva Clear Neck: Yes: Supple Cardiovascular: Yes: S1, S2 Respiratory: Yes: CTA Bilaterally Gastrointestinal: Yes: Soft, Other (peg) Genitourinary: Yes: Incontinence Edema: No Neurological: Yes: Pre-Existing Deficit Labs: CBC, BMP 06/24/19 06:50 06/25/19 06:50 INR, PTT INR 1.05 (0.83-1.09) 06/23/19 11:44 Problem List - Problems (1) AMS (altered mental status) Code(s): R41.82 - ALTERED MENTAL STATUS, UNSPECIFIED (2) H/O craniotomy Code(s): Z98.890 - OTHER SPECIFIED POSTPROCEDURAL STATES (3) Hypernatremia Code(s): E87.0 - HYPEROSMOLALITY AND HYPERNATREMIA (4) Urinary tract infection Code(s): N39.0 - URINARY TRACT INFECTION, SITE NOT SPECIFIED Assessment/Plan Current Medications Generic Name Dose Route Start Last Admin Trade Name Freq PRN Reason Stop Dose Admin Acetaminophen 650 mg 06/25/19 15:51 Tylenol Oral Solution - GT Q6H PRN FEVER Amino Acids 30 ml 06/25/19 17:30 Prosource No Carb Liquid Pkt PO BID@0800,1730 [facility] Amlodipine Besylate 5 mg 06/26/19 10:00 Norvasc - PO DAILY [facility] Bacitracin 1 applic 06/26/19 10:00 Bacitracin - TP DAILY [facility] Enoxaparin Sodium 40 mg 06/25/19 10:00 06/25/19 10:38 Lovenox - SQ 40 mg DAILY [facility] Administration Ceftriaxone Sodium 1 gm/ 50 mls @ 100 mls/hr 06/26/19 10:00 Dextrose IVPB DAILY [facility] Protocol Lacosamide 150 mg 06/25/19 22:00 Vimpat Liquid - PO BID [facility] Levetiracetam 1,000 mg 06/25/19 22:00 Keppra - PO BID [facility] Pantoprazole Sodium 40 mg 06/26/19 10:00 Protonix Packets For Oral Suspension - NGT DAILY [facility] Polyethylene Glycol 17 gm 06/26/19 10:00 Miralax (For Daily Use) - PO DAILY [facility] Senna 8.8 mg 06/25/19 22:00 Senna Oral Solution - PO HS [facility] Impression 1. hypernatremia 2. azotemia 3. brain aneurysm 4. r/o UTI 5. altered mental status 6. dehydration 7. hypercalcemia Plan - sodium is improved - calcium improving - monitor lytes daily - cont feeds - monitor volume status - will follow prn, recall as needed - discussed with - patient was likely dehydrated Dr Jiménez
--- NOTE | 2019-06-25 19:19 | PN ---
Progress Note, Physician History of Present Illness: vents noted chart reviewed seen on the epilepsy monitoring unit No seizure activity video EEG connected On the lower dosage of Keppra no clinical seizure Mental status is slightly better is at the bedside - Current Medication List Current Medications: Active Medications Acetaminophen (Tylenol Oral Solution -) 650 mg GT Q6H PRN PRN Reason: FEVER Amino Acids (Prosource No Carb Liquid Pkt) 30 ml PO BID@0800,1730 [facility] Last Admin: 06/25/19 17:55 Dose: Not Given Amlodipine Besylate (Norvasc -) 5 mg PO DAILY [facility] Bacitracin (Bacitracin -) 1 applic TP DAILY [facility] Enoxaparin Sodium (Lovenox -) 40 mg SQ DAILY [facility] Last Admin: 06/25/19 10:38 Dose: 40 mg Ceftriaxone Sodium 1 gm/ (Dextrose) 50 mls @ 100 mls/hr IVPB DAILY [facility]; Protocol Lacosamide (Vimpat Liquid -) 150 mg PO BID [facility] Levetiracetam (Keppra -) 1,000 mg PO BID [facility] Pantoprazole Sodium (Protonix Packets For Oral Suspension -) 40 mg NGT DAILY [facility] Polyethylene Glycol (Miralax (For Daily Use) -) 17 gm PO DAILY [facility] Senna (Senna Oral Solution -) 8.8 mg PO HS [facility] - Objective Vital Signs: Vital Signs Temperature 97.7 F 06/25/19 18:00 Pulse Rate 82 06/25/19 18:00 Respiratory Rate 20 06/25/19 18:00 Blood Pressure 143/73 06/25/19 18:00 O2 Sat by Pulse Oximetry (%) 95 06/25/19 09:00 Constitutional: Yes: Well Nourished Eyes: Yes: WNL Neurological: Yes: Alert, Oriented, Babinski positive ...Motor Strength: RUE (0) Labs: CBC, BMP 06/24/19 06:50 06/25/19 06:50 INR, PTT INR 1.05 (0.83-1.09) 06/23/19 11:44 Problem List - Problems (1) Epilepsy Assessment/Plan: 1. Start the video EEG monitoring tonightexpected 24-48 hours . Continue Vimpat the same . Keppra taper . Continue DVT prophylaxis Code(s): G40.909 - EPILEPSY, UNSP, NOT INTRACTABLE, WITHOUT STATUS EPILEPTICUS
[2019-06-25] MEDS ORDERED: PT OWN MED DRAWER 7, Y5N ONE (22:05)
[2019-06-25] MEDS: SENNOSIDES 8.8 MG/5 ML BULK BOTTLE PO SCH (22:33)
[2019-06-26] MEDS: AMINO ACIDS/PROTEIN HYDROLYS 30 ML LIQUID.PKT PO SCH ×2 (08:29→16:47)
[2019-06-26] MEDS ORDERED: DEXTROSE 5%-WATER - 50 ML IVPB ONE (09:18)
[2019-06-26] MEDS ORDERED: cefTRIAXone SODIUM 1 GM VIAL ONE (09:18)
[2019-06-26] MEDS: levETIRAcetam 500 MG TABLET (FP) PO SCH (09:29)
[2019-06-26] MEDS: ENOXAPARIN NA (PORCINE) 40 MG/0.4 ML DISP.SYRIN SQ SCH (09:29)
[2019-06-26] MEDS: POLYETHYLENE GLYCOL 3350 119 GM BTL PO SCH (09:31)
[2019-06-26] MEDS: amLODIPine BESYLATE 5 MG TABLET (FP) PO SCH (09:31)
[2019-06-26] MEDS: Lacosamide 50 MG/5 ML ORAL SOLUTION UNIT CUPS PO SCH ×2 (09:32→22:43)
[2019-06-26] MEDS: CEFTRIAXONE 1 GM in DEXTROSE 5%-WATER - 50 ML IVPB SCH (09:32)
[2019-06-26] MEDS: BACITRACIN 15 GM TUBE TOPICAL OINTMENT TP SCH (10:13)
[2019-06-26] MEDS: PANTOPRAZOLE SOD 40 MG SUSPENSION PACKET NGT SCH (10:13)
--- NOTE | 2019-06-26 13:02 | PN ---
Progress Note, Physician Chief Complaint: AWAKE VIDEO EEG IN PROGRESS - Current Medication List Current Medications: Active Medications Acetaminophen (Tylenol Oral Solution -) 650 mg GT Q6H PRN PRN Reason: FEVER Amino Acids (Prosource No Carb Liquid Pkt) 30 ml PO BID@0800,1730 [facility] Last Admin: 06/26/19 08:29 Dose: 30 ml Amlodipine Besylate (Norvasc -) 5 mg PO DAILY [facility] Last Admin: 06/26/19 09:31 Dose: 5 mg Bacitracin (Bacitracin -) 1 applic TP DAILY [facility] Last Admin: 06/26/19 10:13 Dose: 1 applic Enoxaparin Sodium (Lovenox -) 40 mg SQ DAILY [facility] Last Admin: 06/26/19 09:29 Dose: 40 mg Ceftriaxone Sodium 1 gm/ (Dextrose) 50 mls @ 100 mls/hr IVPB DAILY [facility]; Protocol Last Admin: 06/26/19 09:32 Dose: 100 mls/hr Lacosamide (Vimpat Liquid -) 150 mg PO BID [facility] Last Admin: 06/26/19 09:32 Dose: 150 mg Levetiracetam (Keppra -) 1,000 mg PO BID [facility] Last Admin: 06/26/19 09:29 Dose: 1,000 mg Pantoprazole Sodium (Protonix Packets For Oral Suspension -) 40 mg NGT DAILY [facility] Last Admin: 06/26/19 10:13 Dose: 40 mg Polyethylene Glycol (Miralax (For Daily Use) -) 17 gm PO DAILY [facility] Last Admin: 06/26/19 09:31 Dose: 17 gm Senna (Senna Oral Solution -) 8.8 mg PO HS [facility] Last Admin: 06/25/19 22:33 Dose: 8.8 mg - Objective Vital Signs: Vital Signs Temperature 97.5 F L 06/26/19 10:00 Pulse Rate 79 06/26/19 10:00 Respiratory Rate 18 06/26/19 10:00 Blood Pressure 143/80 06/26/19 10:00 O2 Sat by Pulse Oximetry (%) 95 06/25/19 21:00 Constitutional: Yes: Mild Distress Cardiovascular: Yes: Regular Rate and Rhythm Respiratory: Yes: WNL Gastrointestinal: Yes: Soft, Other (GTUBE) Genitourinary: Yes: Incontinence Musculoskeletal: Yes: Muscle Weakness Neurological: Yes: Pre-Existing Deficit, Weakness Labs: CBC, BMP 06/24/19 06:50 06/25/19 06:50 INR, PTT INR 1.05 (0.83-1.09) 06/23/19 11:44 Problem List - Problems (1) H/O craniotomy Code(s): Z98.890 - OTHER SPECIFIED POSTPROCEDURAL STATES (2) Urinary tract infection Code(s): N39.0 - URINARY TRACT INFECTION, SITE NOT SPECIFIED (3) Tracheostomy complication, unspecified Code(s): J95.00 - UNSPECIFIED TRACHEOSTOMY COMPLICATION Assessment/Plan URINE CX + ON ROCEPHIN AWAIT SENS. VIDEO EEG IN PROGRESS PAIN CONTROL TRIAL DYSPHAGIA PUREE PER SWALLOW EVAL REPORT DVT PROPHYLAXIS
--- NOTE | 2019-06-26 16:04 | PN ---
Progress Note, Physician History of Present Illness: events noted chart review lert awake oriented Doesn't follow any command confused Video EEG in progress Spoke to the extensively patient still on the antibiotic - Current Medication List Current Medications: Active Medications Acetaminophen (Tylenol Oral Solution -) 650 mg GT Q6H PRN PRN Reason: FEVER Amino Acids (Prosource No Carb Liquid Pkt) 30 ml PO BID@0800,1730 [facility] Last Admin: 06/26/19 08:29 Dose: 30 ml Amlodipine Besylate (Norvasc -) 5 mg PO DAILY [facility] Last Admin: 06/26/19 09:31 Dose: 5 mg Bacitracin (Bacitracin -) 1 applic TP DAILY [facility] Last Admin: 06/26/19 10:13 Dose: 1 applic Enoxaparin Sodium (Lovenox -) 40 mg SQ DAILY [facility] Last Admin: 06/26/19 09:29 Dose: 40 mg Ceftriaxone Sodium 1 gm/ (Dextrose) 50 mls @ 100 mls/hr IVPB DAILY [facility]; Protocol Last Admin: 06/26/19 09:32 Dose: 100 mls/hr Lacosamide (Vimpat Liquid -) 150 mg PO BID [facility] Last Admin: 06/26/19 09:32 Dose: 150 mg Levetiracetam (Keppra -) 1,000 mg PO BID [facility] Last Admin: 06/26/19 09:29 Dose: 1,000 mg Pantoprazole Sodium (Protonix Packets For Oral Suspension -) 40 mg NGT DAILY [facility] Last Admin: 06/26/19 10:13 Dose: 40 mg Polyethylene Glycol (Miralax (For Daily Use) -) 17 gm PO DAILY [facility] Last Admin: 06/26/19 09:31 Dose: 17 gm Senna (Senna Oral Solution -) 8.8 mg PO HS [facility] Last Admin: 06/25/19 22:33 Dose: 8.8 mg - Objective Vital Signs: Vital Signs Temperature 98.2 F 06/26/19 14:45 Pulse Rate 76 06/26/19 14:45 Respiratory Rate 18 06/26/19 14:45 Blood Pressure 140/74 06/26/19 14:45 O2 Sat by Pulse Oximetry (%) 95 06/26/19 09:00 Constitutional: Yes: Well Nourished Neurological: Yes: Alert, Oriented, Babinski positive ...Motor Strength: RUE (0), RLE (0) Labs: CBC, BMP 06/24/19 06:50 06/25/19 06:50 INR, PTT INR 1.05 (0.83-1.09) 06/23/19 11:44 Problem List - Problems (1) Epilepsy Assessment/Plan: 1. Taper the Keppra . Continue the Vimpat 3. Seizure precautions 4. Another 24 hours of video EEG monitoring with sleep pattern Code(s): G40.909 - EPILEPSY, UNSP, NOT INTRACTABLE, WITHOUT STATUS EPILEPTICUS
--- NOTE | 2019-06-26 20:02 | HOSP ---
Subjective - Review of Symptoms Events since last encounter: Hospitalist Encounter Notified by the RN that the patient was having prolonged swallowing with the pureed diet. After review of the modified barium swallow, and the recommendations from Teri Greenberg. I advised the RN to hold pureed diet, and will resume tube feedings tonight, until the primary team reassesses the patient tomorrow. Assessment: 73 year old female with PMH recent L sided cranectomy s/p brain aneurysm bleed ( 03/2019) from [facility] who presents with some changes in baseline. Admitted for Head Trauma, UTI. Plan: Hold Pureed Diet Aspiration Precautions Resume Tube Feedings Physical Examination Vital Signs: Vital Signs Temperature 98.2 F 06/26/19 14:45 Pulse Rate 79 06/26/19 16:53 Respiratory Rate 18 06/26/19 16:53 Blood Pressure 140/80 06/26/19 16:53 O2 Sat by Pulse Oximetry (%) 95 06/26/19 09:00 Labs: CBC, BMP 06/24/19 06:50 06/25/19 06:50
[2019-06-26] MEDS ORDERED: PT OWN MED DRAWER 7, Y5N ONE (22:36)
[2019-06-26] MEDS: levETIRAcetam 250 MG TABLET (FP) PO SCH (22:42)
[2019-06-26] MEDS: SENNOSIDES 8.8 MG/5 ML BULK BOTTLE PO SCH (22:43)
--- NOTE | 2019-06-26 23:20 | EKG ---
Test Reason : Blood Pressure : / mmHG Vent. Rate : 083 BPM Atrial Rate : 083 BPM P-R Int : 154 ms QRS Dur : 070 ms QT Int : 372 ms P-R-T Axes : 062 037 065 degrees QTc Int : 437 ms NORMAL SINUS RHYTHM NORMAL ECG WHEN COMPARED WITH ECG OF 23-JUN-2019 12:01, PREMATURE VENTRICULAR COMPLEXES ARE NO LONGER PRESENT Confirmed by ORLANDO SAUCEDO MD ([id number]) on 06/26/2019 11:20:11 PM Referred By: Confirmed By:ORLANDO SAUCEDO MD
[2019-06-27] MEDS: AMINO ACIDS/PROTEIN HYDROLYS 30 ML LIQUID.PKT PO SCH ×2 (08:09→17:39)
--- NOTE | 2019-06-27 08:42 | PN ---
Progress Note, Physician Chief Complaint: STOP DYSPHAGIA DIET DUE TO DIFFICULTY SWALLOWING RECOMMENDED DIET - Current Medication List Current Medications: Active Medications Acetaminophen (Tylenol Oral Solution -) 650 mg GT Q6H PRN PRN Reason: FEVER Amino Acids (Prosource No Carb Liquid Pkt) 30 ml PO BID@0800,1730 [facility] Last Admin: 06/27/19 08:09 Dose: 30 ml Amlodipine Besylate (Norvasc -) 5 mg PO DAILY [facility] Last Admin: 06/26/19 09:31 Dose: 5 mg Bacitracin (Bacitracin -) 1 applic TP DAILY [facility] Last Admin: 06/26/19 10:13 Dose: 1 applic Enoxaparin Sodium (Lovenox -) 40 mg SQ DAILY [facility] Last Admin: 06/26/19 09:29 Dose: 40 mg Ceftriaxone Sodium 1 gm/ (Dextrose) 50 mls @ 100 mls/hr IVPB DAILY [facility]; Protocol Last Admin: 06/26/19 09:32 Dose: 100 mls/hr Lacosamide (Vimpat Liquid -) 150 mg PO BID [facility] Last Admin: 06/26/19 22:43 Dose: 150 mg Levetiracetam (Keppra -) 750 mg PO BID [facility] Last Admin: 06/26/19 22:42 Dose: 750 mg Pantoprazole Sodium (Protonix Packets For Oral Suspension -) 40 mg NGT DAILY [facility] Last Admin: 06/26/19 10:13 Dose: 40 mg Polyethylene Glycol (Miralax (For Daily Use) -) 17 gm PO DAILY [facility] Last Admin: 06/26/19 09:31 Dose: 17 gm Senna (Senna Oral Solution -) 8.8 mg PO HS [facility] Last Admin: 06/26/19 22:43 Dose: 8.8 mg - Objective Vital Signs: Vital Signs Temperature 98.2 F 06/27/19 02:00 Pulse Rate 71 06/27/19 02:00 Respiratory Rate 18 06/27/19 02:00 Blood Pressure 125/71 06/27/19 02:00 O2 Sat by Pulse Oximetry (%) 95 06/26/19 21:00 Constitutional: Yes: Mild Distress Cardiovascular: Yes: Regular Rate and Rhythm Respiratory: Yes: WNL Gastrointestinal: Yes: Soft Genitourinary: Yes: Incontinence Musculoskeletal: Yes: Muscle Weakness Edema: LLE: Trace, RLE: Trace Integumentary: Yes: Venous Stasis Changes, Other Neurological: Yes: Pre-Existing Deficit ...Motor Strength: LLE, RLE Psychiatric: Yes: Other Labs: CBC, BMP 06/24/19 06:50 06/25/19 06:50 INR, PTT INR 1.05 (0.83-1.09) 06/23/19 11:44 Problem List - Problems (1) H/O craniotomy Code(s): Z98.890 - OTHER SPECIFIED POSTPROCEDURAL STATES (2) Urinary tract infection Code(s): N39.0 - URINARY TRACT INFECTION, SITE NOT SPECIFIED (3) Tracheostomy complication, unspecified Code(s): J95.00 - UNSPECIFIED TRACHEOSTOMY COMPLICATION Assessment/Plan URINE CX + ON ROCEPHIN AWAIT SENS. VIDEO EEG IN PROGRESS PAIN CONTROL TRIAL DYSPHAGIA PUREE PER SWALLOW EVAL REPORT STOPPED DVT PROPHYLAXIS DC PLANNING KELSIE CARDOSO
[2019-06-27] MEDS ORDERED: DEXTROSE 5%-WATER - 50 ML IVPB ONE (08:57)
[2019-06-27] MEDS ORDERED: cefTRIAXone SODIUM 1 GM VIAL ONE (08:57)
[2019-06-27] MEDS: ENOXAPARIN NA (PORCINE) 40 MG/0.4 ML DISP.SYRIN SQ SCH (09:10)
[2019-06-27] MEDS: Lacosamide 50 MG/5 ML ORAL SOLUTION UNIT CUPS PO SCH ×2 (09:10→21:42)
[2019-06-27] MEDS: amLODIPine BESYLATE 5 MG TABLET (FP) PO SCH (09:11)
[2019-06-27] MEDS: BACITRACIN 15 GM TUBE TOPICAL OINTMENT TP SCH (09:11)
[2019-06-27] MEDS: PANTOPRAZOLE SOD 40 MG SUSPENSION PACKET NGT SCH (09:11)
[2019-06-27] MEDS: levETIRAcetam 250 MG TABLET (FP) PO SCH ×2 (09:11→21:42)
[2019-06-27] MEDS: CEFTRIAXONE 1 GM in DEXTROSE 5%-WATER - 50 ML IVPB SCH (09:13)
[2019-06-27] MEDS: POLYETHYLENE GLYCOL 3350 119 GM BTL PO SCH (09:15)
[2019-06-27] MEDS ORDERED: PT OWN MED DRAWER 7, Y5N ONE (20:46)
[2019-06-27] MEDS: SENNOSIDES 8.8 MG/5 ML BULK BOTTLE PO SCH (21:43)
[2019-06-28 08:06] LABS: ALBUMIN 2.8 g/dl (3.4-5.0); BILIRUBIN,TOTAL 0.2 mg/dL (0.2-1); BLOOD UREA NITROGEN 25.8 mg/dL (7-18); CALCIUM 9.7 mg/dL (8.5-10.1); CREATININE 0.5 mg/dL (0.55-1.3); POTASSIUM 3.9 mmol/L (3.5-5.1); TOT PROT 6.3 g/dl (6.4-8.2)
--- NOTE | 2019-06-28 09:30 | DS ---
Physical Examination Vital Signs: Vital Signs Temperature 98.3 F 06/28/19 08:31 Pulse Rate 92 H 06/28/19 08:31 Respiratory Rate 20 06/28/19 08:31 Blood Pressure 145/78 06/28/19 08:31 O2 Sat by Pulse Oximetry (%) 96 06/27/19 21:00 Cardiovascular: Yes: S1, S2 Respiratory: Yes: Regular, CTA Bilaterally Gastrointestinal: Yes: Normal Bowel Sounds, Soft Labs: CBC, BMP 06/24/19 06:50 06/28/19 07:10 Discharge Summary Problems reviewed: Yes Reason For Visit: BEHAVIORAL CHANGE; URINARY TRACT INFECTION Current Active Problems AMS (altered mental status) (Acute) Epilepsy (Acute) H/O craniotomy (Acute) Hypernatremia (Acute) Metabolic encephalopathy (Acute) Urinary tract infection (Acute) Hospital Course: - Problems (1) AMS (altered mental status) Assessment/Plan: -CT head unremarkable -Neurology consult noted-- -likely 2/2 to metabolic encephalopathy Problems reviewed: Yes Code(s): R41.82 - ALTERED MENTAL STATUS, UNSPECIFIED (2) H/O craniotomy Problems reviewed: Yes Code(s): Z98.890 - OTHER SPECIFIED POSTPROCEDURAL STATES (3) Urinary tract infection Assessment/Plan: -UC: E COLI -PO ABX -ID consult -IV rocephin -afebrile -Leukocytosis resolved Problems reviewed: Yes Code(s): N39.0 - URINARY TRACT INFECTION, SITE NOT SPECIFIED (4) Hypernatremia Assessment/Plan: -Nephrology consult -monitor trend--140 Problems reviewed: Yes Code(s): E87.0 - HYPEROSMOLALITY AND HYPERNATREMIA (5) Metabolic encephalopathy Problems reviewed: Yes Code(s): G93.41 - METABOLIC ENCEPHALOPATHY DC PLANNING -- SNF Condition: Stable - Instructions Referrals: Javid Hernandez MD [Primary Care Provider] - Disposition: [facility] - Home Medications Comprehensive Discharge Medication List: Ambulatory Orders Acetaminophen [Tylenol] 650 mg PO Q6H PRN 06/23/19 Amlodipine Besylate [Norvasc -] 5 mg PO DAILY 06/23/19 Bacitracin - [Bacitracin Topical Ointment -] 1 appful TP DAILY 06/23/19 Lacosamide Liquid [Vimpat Liquid -] 100 mg PO BID 06/23/19 Polyethylene Glycol 3350 [Miralax 255 gm Btl -] 17 gm PO DAILY 06/23/19 Polyvinyl Alcohol/Povidone/Pf [Refresh Classic Eye Drops] 1 drop OU Q4H Amino Acids/Protein Hydrolys [Prosource No Carb Liquid Pkt] 30 ml PO BID@0800, 1730 packet 06/28/19 Enoxaparin [Lovenox -] 40 mg SQ DAILY disp.syrin 06/28/19 Pantoprazole Suspension [Protonix Packets For Oral Suspension -] 40 mg NGT DAILY packet 06/28/19 levETIRAcetam [Keppra -] 750 mg PO BID tablet 06/28/19
[2019-06-28] MEDS: ENOXAPARIN NA (PORCINE) 40 MG/0.4 ML DISP.SYRIN SQ SCH (09:46)
[2019-06-28] MEDS: Lacosamide 50 MG/5 ML ORAL SOLUTION UNIT CUPS PO SCH ×2 (09:47→22:13)
[2019-06-28] MEDS: PANTOPRAZOLE SOD 40 MG SUSPENSION PACKET NGT SCH (09:48)
[2019-06-28] MEDS: AMINO ACIDS/PROTEIN HYDROLYS 30 ML LIQUID.PKT PO SCH ×2 (09:49→18:15)
[2019-06-28] MEDS: amLODIPine BESYLATE 5 MG TABLET (FP) PO SCH (09:49)
[2019-06-28] MEDS: BACITRACIN 15 GM TUBE TOPICAL OINTMENT TP SCH (09:50)
[2019-06-28] MEDS: levETIRAcetam 250 MG TABLET (FP) PO SCH ×2 (09:50→22:14)
[2019-06-28] MEDS ORDERED: CEPHALEXIN MONOHYDRATE 500 MG CAPSULE (UD) PO SCH (10:00)
[2019-06-28] MEDS ORDERED: FAMOTIDINE 40 MG/5 ML ORAL SUSPENSION NGT SCH (10:00)
[2019-06-28] MEDS: POLYETHYLENE GLYCOL 3350 119 GM BTL PO SCH (10:01)
[2019-06-28] MEDS ORDERED: PT OWN MED DRAWER 7, Y5N ONE (10:01)
--- NOTE | 2019-06-28 10:11 | PN ---
Progress Note, [employer] - Note Progress Note: Selected Entries 06/27/19 06/27/19 06/27/19 02:00 09:00 10:45 Lunch NPO Temperature 98.2 F 98.2 F 06/27/19 06/27/19 06/28/19 15:43 18:00 02:00 Lunch NPO Temperature 97.8 F 97.3 F L 97.5 F L 06/28/19 06/28/19 06:00 08:31 Lunch Temperature 98.4 F 98.3 F Laboratory Tests 06/24/19 06:50 WBC 9.0 Pt reported to have held trial of applesauce, now with PEG feedings only. Significant Oral Apraxia adversely affects oral-pharyngeal transfer. Swallow reassessed. Initial 3 tsp of thickened liquid and 1st 1/3 tsp applesauce with good acceptance, bilabial closure and timely brisk swallow. 2nd trial applesauce with oral holding. repeat presentation of spoon, now empty , with gentle depression to tongue, resulted in ailyn-pharyngeal transfer and brisk swallow. Repeat 2 trials of thick liquid with oral spillage/drooling. Trials then held. Suggest STR at facility near pt's home to include PT/OT/Sp/Sw therapies. With practice and taste that she prefers, swallowing should hopefully improve. I would discourage removing PEG tube any time soon as it may be needed when pt is lethargic or has setbacks. Continue GT feedings. Pt's has been educated on the above and was asked NOT to feed pt at this time.
--- NOTE | 2019-06-28 11:34 | PN ---
Progress Note, Physician History of Present Illness: Pt seen and examined at bedside. She appears comfortable. - Current Medication List Current Medications: Active Medications Acetaminophen (Tylenol Oral Solution -) 650 mg GT Q6H PRN PRN Reason: FEVER Amino Acids (Prosource No Carb Liquid Pkt) 30 ml PO BID@0800,1730 [facility] Last Admin: 06/28/19 09:49 Dose: 30 ml Amlodipine Besylate (Norvasc -) 5 mg PO DAILY [facility] Last Admin: 06/28/19 09:49 Dose: 5 mg Bacitracin (Bacitracin -) 1 applic TP DAILY [facility] Last Admin: 06/28/19 09:50 Dose: 1 applic Cephalexin (Keflex Oral Suspension -) 500 mg GT BID [facility] Enoxaparin Sodium (Lovenox -) 40 mg SQ DAILY [facility] Last Admin: 06/28/19 09:46 Dose: 40 mg Famotidine (Pepcid) 20 mg NGT BID [facility] Lacosamide (Vimpat Liquid -) 150 mg PO BID [facility] Last Admin: 06/28/19 09:47 Dose: 150 mg Levetiracetam (Keppra -) 750 mg PO BID [facility] Last Admin: 06/28/19 09:50 Dose: 750 mg Polyethylene Glycol (Miralax (For Daily Use) -) 17 gm PO DAILY [facility] Last Admin: 06/28/19 10:01 Dose: Not Given Senna (Senna Oral Solution -) 8.8 mg PO HS [facility] Last Admin: 06/27/19 21:43 Dose: 8.8 mg - Objective Vital Signs: Vital Signs Temperature 98.3 F 06/28/19 08:31 Pulse Rate 92 H 06/28/19 08:31 Respiratory Rate 20 06/28/19 08:31 Blood Pressure 145/78 06/28/19 08:31 O2 Sat by Pulse Oximetry (%) 96 06/27/19 21:00 Constitutional: Yes: Calm Cardiovascular: Yes: S1, S2 Respiratory: Yes: CTA Bilaterally Gastrointestinal: Yes: Soft Genitourinary: Yes: Incontinence Musculoskeletal: Yes: Muscle Weakness Neurological: Yes: Pre-Existing Deficit Labs: CBC, BMP 06/24/19 06:50 06/28/19 07:10 INR, PTT INR 1.05 (0.83-1.09) 06/23/19 11:44 Problem List - Problems (1) AMS (altered mental status) Code(s): R41.82 - ALTERED MENTAL STATUS, UNSPECIFIED (2) H/O craniotomy Code(s): Z98.890 - OTHER SPECIFIED POSTPROCEDURAL STATES (3) Hypernatremia Code(s): E87.0 - HYPEROSMOLALITY AND HYPERNATREMIA (4) Urinary tract infection Code(s): N39.0 - URINARY TRACT INFECTION, SITE NOT SPECIFIED Assessment/Plan Current Medications Generic Name Dose Route Start Last Admin Trade Name Freq PRN Reason Stop Dose Admin Acetaminophen 650 mg 06/25/19 15:51 Tylenol Oral Solution - GT Q6H PRN FEVER Amino Acids 30 ml 06/25/19 17:30 06/28/19 09:49 Prosource No Carb Liquid Pkt PO 30 ml BID@0800,1730 [facility] Administration Amlodipine Besylate 5 mg 06/26/19 10:00 06/28/19 09:49 Norvasc - PO 5 mg DAILY [facility] Administration Bacitracin 1 applic 06/26/19 10:00 06/28/19 09:50 Bacitracin - TP 1 applic DAILY [facility] Administration Cephalexin 500 mg 06/28/19 10:00 Keflex Oral Suspension - GT BID [facility] Enoxaparin Sodium 40 mg 06/25/19 10:00 06/28/19 09:46 Lovenox - SQ 40 mg DAILY [facility] Administration Famotidine 20 mg 06/29/19 10:00 Pepcid NGT BID [facility] Lacosamide 150 mg 06/25/19 22:00 06/28/19 09:47 Vimpat Liquid - PO 150 mg BID [facility] Administration Levetiracetam 750 mg 06/26/19 22:00 06/28/19 09:50 Keppra - PO 750 mg BID [facility] Administration Polyethylene Glycol 17 gm 06/26/19 10:00 06/28/19 10:01 Miralax (For Daily Use) - PO Not Given DAILY [facility] Senna 8.8 mg 06/25/19 22:00 06/27/19 21:43 Senna Oral Solution - PO 8.8 mg HS [facility] Administration Impression 1. hypernatremia 2. azotemia 3. brain aneurysm 4. r/o UTI 5. altered mental status 6. dehydration 7. hypercalcemia Plan - sodium remains stable - bun improving - cont feeds with free water - monitor lytes and trends - discussed labs with - patient was likely dehydrated Dr Jiménez
[2019-06-28] MEDS: CEPHALEXIN 250 MG/5 ML ORAL SUSPENSION GT SCH ×2 (12:15→22:13)
--- NOTE | 2019-06-28 16:37 | PN ---
Progress Note, Physician History of Present Illness: events noted Chart reviwed no new events VEEG noted - Current Medication List Current Medications: Active Medications Acetaminophen (Tylenol Oral Solution -) 650 mg GT Q6H PRN PRN Reason: FEVER Amino Acids (Prosource No Carb Liquid Pkt) 30 ml PO BID@0800,1730 [facility] Last Admin: 06/28/19 09:49 Dose: 30 ml Amlodipine Besylate (Norvasc -) 5 mg PO DAILY [facility] Last Admin: 06/28/19 09:49 Dose: 5 mg Bacitracin (Bacitracin -) 1 applic TP DAILY [facility] Last Admin: 06/28/19 09:50 Dose: 1 applic Cephalexin (Keflex Oral Suspension -) 500 mg GT BID [facility] Enoxaparin Sodium (Lovenox -) 40 mg SQ DAILY [facility] Last Admin: 06/28/19 09:46 Dose: 40 mg Famotidine (Pepcid) 20 mg NGT BID [facility] Lacosamide (Vimpat Liquid -) 150 mg PO BID [facility] Last Admin: 06/28/19 09:47 Dose: 150 mg Levetiracetam (Keppra -) 750 mg PO BID [facility] Last Admin: 06/28/19 09:50 Dose: 750 mg Polyethylene Glycol (Miralax (For Daily Use) -) 17 gm PO DAILY [facility] Last Admin: 06/28/19 10:01 Dose: Not Given Senna (Senna Oral Solution -) 8.8 mg PO HS [facility] Last Admin: 06/27/19 21:43 Dose: 8.8 mg - Objective Vital Signs: Vital Signs Temperature 98.2 F 06/28/19 14:26 Pulse Rate 81 06/28/19 14:26 Respiratory Rate 16 06/28/19 14:26 Blood Pressure 139/73 06/28/19 14:26 O2 Sat by Pulse Oximetry (%) 96 06/28/19 09:00 Constitutional: Yes: Well Nourished Eyes: Yes: WNL HENT: Yes: WNL Neurological: Yes: Alert, Babinski negative, Unresponsive ...Motor Strength: WNL Labs: CBC, BMP 06/24/19 06:50 06/28/19 07:10 INR, PTT INR 1.05 (0.83-1.09) 06/23/19 11:44 Problem List - Problems (1) Epilepsy Assessment/Plan: 1. Off VEEG 2. Keppra taper 3 .Vimpat mono DC planning Code(s): G40.909 - EPILEPSY, UNSP, NOT INTRACTABLE, WITHOUT STATUS EPILEPTICUS
[2019-06-28] MEDS: SENNOSIDES 8.8 MG/5 ML BULK BOTTLE PO SCH (22:14)
--- NOTE | 2019-06-29 08:06 | DS ---
Physical Examination Vital Signs: Vital Signs Temperature 98.3 F 06/29/19 06:00 Pulse Rate 68 06/29/19 06:00 Respiratory Rate 20 06/29/19 06:00 Blood Pressure 129/67 06/29/19 06:00 O2 Sat by Pulse Oximetry (%) 96 06/28/19 21:00 Cardiovascular: Yes: Regular Rate and Rhythm Respiratory: Yes: Regular, CTA Bilaterally Gastrointestinal: Yes: Normal Bowel Sounds, Soft Labs: CBC, BMP 06/24/19 06:50 06/28/19 07:10 Discharge Summary Problems reviewed: Yes Reason For Visit: BEHAVIORAL CHANGE; URINARY TRACT INFECTION Current Active Problems AMS (altered mental status) (Acute) Epilepsy (Acute) H/O craniotomy (Acute) Hypernatremia (Acute) Metabolic encephalopathy (Acute) Urinary tract infection (Acute) Hospital Course: - Problems (1) AMS (altered mental status) Assessment/Plan: -CT head unremarkable -Neurology consult noted-- -likely 2/2 to metabolic encephalopathy Problems reviewed: Yes Code(s): R41.82 - ALTERED MENTAL STATUS, UNSPECIFIED (2) H/O craniotomy Problems reviewed: Yes Code(s): Z98.890 - OTHER SPECIFIED POSTPROCEDURAL STATES (3) Urinary tract infection Assessment/Plan: -UC: E COLI -PO ABX -ID consult -IV rocephin -afebrile -Leukocytosis resolved Problems reviewed: Yes Code(s): N39.0 - URINARY TRACT INFECTION, SITE NOT SPECIFIED (4) Hypernatremia Assessment/Plan: -Nephrology consult -monitor trend--140 Problems reviewed: Yes Code(s): E87.0 - HYPEROSMOLALITY AND HYPERNATREMIA (5) Metabolic encephalopathy Problems reviewed: Yes Code(s): G93.41 - METABOLIC ENCEPHALOPATHY DC PLANNING -- SNF Condition: Stable - Instructions Referrals: Javid Hernandez MD [Primary Care Provider] - Disposition: LONG-TERM FACILITY - Home Medications Comprehensive Discharge Medication List: Ambulatory Orders Acetaminophen [Tylenol] 650 mg PO Q6H PRN 06/23/19 Amlodipine Besylate [Norvasc -] 5 mg PO DAILY 06/23/19 Bacitracin - [Bacitracin Topical Ointment -] 1 appful TP DAILY 06/23/19 Lacosamide Liquid [Vimpat Liquid -] 100 mg PO BID 06/23/19 Polyethylene Glycol 3350 [Miralax 255 gm Btl -] 17 gm PO DAILY 06/23/19 Polyvinyl Alcohol/Povidone/Pf [Refresh Classic Eye Drops] 1 drop OU Q4H Amino Acids/Protein Hydrolys [Prosource No Carb Liquid Pkt] 30 ml PO BID@0800, 1730 packet 06/28/19 Enoxaparin [Lovenox -] 40 mg SQ DAILY disp.syrin 06/28/19 Pantoprazole Suspension [Protonix Packets For Oral Suspension -] 40 mg NGT DAILY packet 06/28/19 levETIRAcetam [Keppra -] 750 mg PO BID tablet 06/28/19
[2019-06-29] MEDS ORDERED: PT OWN MED DRAWER 7, Y5N ONE ×3 (09:03→21:42)
[2019-06-29] MEDS: POLYETHYLENE GLYCOL 3350 119 GM BTL PO SCH (10:28)
--- NOTE | 2019-06-29 11:29 | PN ---
Progress Note, DIRECTOR ACCOUNT MANAGEMENT - Note Progress Note: Pt accepted 10 1/2 tsp of nectar lemon water with brisk swallow and good tolerance. She wiped her mouth with her hand, although I initially had placed a tissue in her hand. With cues, pt was able to take tissue out of tissue box and wipe her mouth. This demonstrated excellent progress, as pt is quite Apraxia. Auditory comprehension improving. Yes/no responses are improvin in accuracy, using yes/no head shake/nod and hand waving. She verbalized "HI" for me for the first time. Pt's stated she attempted to verbalize frequently this am. She is now demonstrating greater awareness, less passivity and is beginning to show frustratation with poor ability to communicate. Simple Communication board constructed. Aphasia/Apraxia and suspected field cut adversely affects function. Pt's educated throughout session IMP- Improving swallowing function Improving accuracy of Yes/no response Beginning to use left hand functionally with cues and assistance Increased awareness/ beginning to show frustration REC: Pt will benefit from PT/OT/speech/swallow to maximize function for ADL
[2019-06-29] MEDS: Lacosamide 50 MG/5 ML ORAL SOLUTION UNIT CUPS PO SCH ×2 (12:38→22:02)
[2019-06-29] MEDS: ENOXAPARIN NA (PORCINE) 40 MG/0.4 ML DISP.SYRIN SQ SCH (12:39)
[2019-06-29] MEDS: CEPHALEXIN 250 MG/5 ML ORAL SUSPENSION GT SCH ×2 (12:40→22:03)
[2019-06-29] MEDS: amLODIPine BESYLATE 5 MG TABLET (FP) PO SCH (12:41)
[2019-06-29] MEDS: AMINO ACIDS/PROTEIN HYDROLYS 30 ML LIQUID.PKT PO SCH ×2 (12:41→17:46)
[2019-06-29] MEDS: levETIRAcetam 250 MG TABLET (FP) PO SCH (12:42)
[2019-06-29] MEDS: BACITRACIN 15 GM TUBE TOPICAL OINTMENT TP SCH (12:42)
[2019-06-29] MEDS: FAMOTIDINE 40 MG/5 ML ORAL SUSPENSION NGT SCH ×2 (12:42→22:03)
--- NOTE | 2019-06-29 20:13 | PN ---
Progress Note, Physician History of Present Illness: No clinical seizure VEEG report pending intial scan with no seizure On Keppra taper Will continue gurmeet Vimpat - Current Medication List Current Medications: Active Medications Acetaminophen (Tylenol Oral Solution -) 650 mg GT Q6H PRN PRN Reason: FEVER Amino Acids (Prosource No Carb Liquid Pkt) 30 ml PO BID@0800,1730 [facility] Last Admin: 06/29/19 17:46 Dose: 30 ml Amlodipine Besylate (Norvasc -) 5 mg PO DAILY [facility] Last Admin: 06/29/19 12:41 Dose: 5 mg Bacitracin (Bacitracin -) 1 applic TP DAILY [facility] Last Admin: 06/29/19 12:42 Dose: 1 applic Cephalexin (Keflex Oral Suspension -) 500 mg GT BID [facility] Last Admin: 06/29/19 12:40 Dose: 500 mg Enoxaparin Sodium (Lovenox -) 40 mg SQ DAILY [facility] Last Admin: 06/29/19 12:39 Dose: 40 mg Famotidine (Pepcid) 20 mg NGT BID [facility] Last Admin: 06/29/19 12:42 Dose: 20 mg Lacosamide (Vimpat Liquid -) 150 mg PO BID [facility] Last Admin: 06/29/19 12:38 Dose: 150 mg Levetiracetam (Keppra -) 750 mg PO BID [facility] Last Admin: 06/29/19 12:42 Dose: 750 mg Polyethylene Glycol (Miralax (For Daily Use) -) 17 gm PO DAILY [facility] Last Admin: 06/29/19 10:28 Dose: Not Given Senna (Senna Oral Solution -) 8.8 mg PO HS [facility] Last Admin: 06/28/19 22:14 Dose: 8.8 mg - Objective Vital Signs: Vital Signs Temperature 98.9 F 06/29/19 18:00 Pulse Rate 81 06/29/19 18:00 Respiratory Rate 18 06/29/19 18:00 Blood Pressure 122/70 06/29/19 18:00 O2 Sat by Pulse Oximetry (%) 96 06/29/19 09:00 Constitutional: Yes: Well Nourished Eyes: Yes: WNL HENT: Yes: WNL Neurological: Yes: Alert, Oriented, Babinski negative ...Motor Strength: WNL Labs: CBC, BMP 06/24/19 06:50 06/28/19 07:10 INR, PTT INR 1.05 (0.83-1.09) 06/23/19 11:44 Problem List - Problems (1) Epilepsy Assessment/Plan: 1. Sz precaution 2. Keppra 500 mg po q12 3. Spoke to Bill Code(s): G40.909 - EPILEPSY, UNSP, NOT INTRACTABLE, WITHOUT STATUS EPILEPTICUS
[2019-06-29] MEDS: levETIRAcetam 500 MG TABLET (FP) PO SCH (22:01)
[2019-06-29] MEDS: SENNOSIDES 8.8 MG/5 ML BULK BOTTLE PO SCH (22:02)
--- NOTE | 2019-06-30 08:09 | DS ---
Physical Examination Vital Signs: Vital Signs Temperature 97.6 F 06/30/19 06:49 Pulse Rate 86 06/30/19 06:49 Respiratory Rate 18 06/30/19 06:49 Blood Pressure 137/78 06/30/19 06:49 O2 Sat by Pulse Oximetry (%) 96 06/29/19 21:00 Cardiovascular: Yes: S1, S2 Respiratory: Yes: Regular, CTA Bilaterally Gastrointestinal: Yes: Normal Bowel Sounds, Soft Neurological: Yes: Alert Labs: CBC, BMP 06/24/19 06:50 06/28/19 07:10 Discharge Summary Problems reviewed: Yes Reason For Visit: BEHAVIORAL CHANGE; URINARY TRACT INFECTION Current Active Problems AMS (altered mental status) (Acute) Epilepsy (Acute) H/O craniotomy (Acute) Hypernatremia (Acute) Metabolic encephalopathy (Acute) Urinary tract infection (Acute) Hospital Course: - Problems (1) AMS (altered mental status) Assessment/Plan: -CT head unremarkable -Neurology consult noted-- -likely 2/2 to metabolic encephalopathy Problems reviewed: Yes Code(s): R41.82 - ALTERED MENTAL STATUS, UNSPECIFIED (2) H/O craniotomy Problems reviewed: Yes Code(s): Z98.890 - OTHER SPECIFIED POSTPROCEDURAL STATES (3) Urinary tract infection Assessment/Plan: -UC: E COLI -PO ABX -ID consult -IV rocephin -afebrile -Leukocytosis resolved Problems reviewed: Yes Code(s): N39.0 - URINARY TRACT INFECTION, SITE NOT SPECIFIED (4) Hypernatremia Assessment/Plan: -Nephrology consult -monitor trend--140 Problems reviewed: Yes Code(s): E87.0 - HYPEROSMOLALITY AND HYPERNATREMIA (5) Metabolic encephalopathy Problems reviewed: Yes Code(s): G93.41 - METABOLIC ENCEPHALOPATHY DC PLANNING -- SNF Condition: Stable - Instructions Referrals: Javid Hernandez MD [Primary Care Provider] - Disposition: RESIDENTIAL FACILITY - Home Medications Comprehensive Discharge Medication List: Ambulatory Orders Acetaminophen [Tylenol] 650 mg PO Q6H PRN 06/23/19 Amlodipine Besylate [Norvasc -] 5 mg PO DAILY 06/23/19 Bacitracin - [Bacitracin Topical Ointment -] 1 appful TP DAILY 06/23/19 Lacosamide Liquid [Vimpat Liquid -] 100 mg PO BID 06/23/19 Polyethylene Glycol 3350 [Miralax 255 gm Btl -] 17 gm PO DAILY 06/23/19 Polyvinyl Alcohol/Povidone/Pf [Refresh Classic Eye Drops] 1 drop OU Q4H Amino Acids/Protein Hydrolys [Prosource No Carb Liquid Pkt] 30 ml PO BID@0800, 1730 packet 06/28/19 Enoxaparin [Lovenox -] 40 mg SQ DAILY disp.syrin 06/28/19 Pantoprazole Suspension [Protonix Packets For Oral Suspension -] 40 mg NGT DAILY packet 06/28/19 levETIRAcetam [Keppra -] 750 mg PO BID tablet 06/28/19
[2019-06-30] MEDS: AMINO ACIDS/PROTEIN HYDROLYS 30 ML LIQUID.PKT PO SCH ×2 (08:39→17:56)
[2019-06-30] MEDS ORDERED: PT OWN MED DRAWER 7, Y5N ONE ×3 (09:25→20:23)
[2019-06-30] MEDS: BACITRACIN 15 GM TUBE TOPICAL OINTMENT TP SCH (09:45)
[2019-06-30] MEDS: CEPHALEXIN 250 MG/5 ML ORAL SUSPENSION GT SCH ×2 (09:45→21:22)
[2019-06-30] MEDS: amLODIPine BESYLATE 5 MG TABLET (FP) PO SCH (09:46)
[2019-06-30] MEDS: ENOXAPARIN NA (PORCINE) 40 MG/0.4 ML DISP.SYRIN SQ SCH (09:46)
[2019-06-30] MEDS: levETIRAcetam 500 MG TABLET (FP) PO SCH ×2 (09:46→21:23)
[2019-06-30] MEDS: Lacosamide 50 MG/5 ML ORAL SOLUTION UNIT CUPS PO SCH ×2 (09:46→21:42)
[2019-06-30] MEDS: FAMOTIDINE 40 MG/5 ML ORAL SUSPENSION NGT SCH ×2 (09:48→21:23)
[2019-06-30] MEDS: POLYETHYLENE GLYCOL 3350 119 GM BTL PO SCH (09:48)
--- NOTE | 2019-06-30 15:49 | PN ---
Progress Note, HOME HEALTH NURSE LICENSED PRACTICAL - Note Progress Note: Pt continues to make significant gains with speech/swallow therapy- Pt was able to wave to me and began pointing to a communication board- 70% accuracy 2 way discrimination, 50% 3 way discrimination. She could point to all squares on 4 way discrim board, which shows good attention to right and left mobile designer of board. She was able to take a tissue and blow her nose for the first tme for me. Limb Apraxia is improving. She would greatly benefit from intensive OT to continue skills forADL. She said I want to ... repeatedly and I love you to her . This demonstrated excellent progress, as pt is quite Apraxia. Auditory comprehension improving. Yes/no responses are improving in accuracy, using yes/no head shake/nod and hand waving. . She is now demonstrating greater awareness, less passivity and is beginning to point to her mouth, aware of impaired ability to communicate. Pt tolerated nectar lemon water with brisk swallow and good tolerance. Pt's educated throughout session IMP- Improving swallowing function Improving accuracy of Yes/no response Beginning to use left hand functionally with cues and assistance Increased awareness/ beginning to show frustration Pt will benefit from PT/OT/speech/swallow to maximize function for ADL. I spoke with Alexis tali and communicated pt's progress, potential, and need for intensve skilled rehablitation. They will re-screen her again and would like updated PT notes. REC: Trial of Dys puree and nectar thick liquids on tsp by staff
[2019-06-30] MEDS: ACETAMINOPHEN 650 MG/20.3 ML ORAL SOLUTION (CUPS) GT PRN (18:04)
[2019-06-30] MEDS: SENNOSIDES 8.8 MG/5 ML BULK BOTTLE PO SCH (21:31)
[2019-07-01] MEDS ORDERED: PT OWN MED DRAWER 7, Y5N ONE ×4 (09:43→21:54)
[2019-07-01] MEDS: AMINO ACIDS/PROTEIN HYDROLYS 30 ML LIQUID.PKT PO SCH ×2 (09:46→17:45)
[2019-07-01] MEDS: levETIRAcetam 500 MG TABLET (FP) PO SCH ×2 (09:47→21:50)
[2019-07-01] MEDS: ENOXAPARIN NA (PORCINE) 40 MG/0.4 ML DISP.SYRIN SQ SCH (09:47)
[2019-07-01] MEDS: Lacosamide 50 MG/5 ML ORAL SOLUTION UNIT CUPS PO SCH ×2 (09:47→21:47)
[2019-07-01] MEDS: amLODIPine BESYLATE 5 MG TABLET (FP) PO SCH (09:47)
[2019-07-01] MEDS: FAMOTIDINE 40 MG/5 ML ORAL SUSPENSION NGT SCH ×2 (09:48→21:52)
[2019-07-01] MEDS: CEPHALEXIN 250 MG/5 ML ORAL SUSPENSION GT SCH ×2 (09:50→21:56)
[2019-07-01] MEDS: POLYETHYLENE GLYCOL 3350 119 GM BTL PO SCH (09:51)
--- NOTE | 2019-07-01 09:57 | DS ---
Physical Examination Vital Signs: Vital Signs Temperature 98.6 F 07/01/19 06:00 Pulse Rate 81 07/01/19 06:00 Respiratory Rate 18 07/01/19 06:00 Blood Pressure 128/70 07/01/19 06:00 O2 Sat by Pulse Oximetry (%) 96 06/30/19 21:00 Cardiovascular: Yes: S1, S2 Respiratory: Yes: Regular, CTA Bilaterally Gastrointestinal: Yes: Normal Bowel Sounds, Soft Neurological: Yes: Alert Labs: CBC, BMP 06/24/19 06:50 06/28/19 07:10 Discharge Summary Problems reviewed: Yes Reason For Visit: BEHAVIORAL CHANGE; URINARY TRACT INFECTION Current Active Problems AMS (altered mental status) (Acute) Epilepsy (Acute) H/O craniotomy (Acute) Hypernatremia (Acute) Metabolic encephalopathy (Acute) Urinary tract infection (Acute) Hospital Course: - Problems (1) AMS (altered mental status) Assessment/Plan: -CT head unremarkable -Neurology consult noted-- -likely 2/2 to metabolic encephalopathy Problems reviewed: Yes Code(s): R41.82 - ALTERED MENTAL STATUS, UNSPECIFIED (2) H/O craniotomy Problems reviewed: Yes Code(s): Z98.890 - OTHER SPECIFIED POSTPROCEDURAL STATES (3) Urinary tract infection Assessment/Plan: -UC: E COLI -PO ABX -ID consult -IV rocephin -afebrile -Leukocytosis resolved Problems reviewed: Yes Code(s): N39.0 - URINARY TRACT INFECTION, SITE NOT SPECIFIED (4) Hypernatremia Assessment/Plan: -Nephrology consult -monitor trend--140 Problems reviewed: Yes Code(s): E87.0 - HYPEROSMOLALITY AND HYPERNATREMIA (5) Metabolic encephalopathy Problems reviewed: Yes Code(s): G93.41 - METABOLIC ENCEPHALOPATHY DC PLANNING -- SNF Condition: Stable - Instructions Referrals: Javid Hernandez MD [Primary Care Provider] - Disposition: CUSTODIAL FACILITY - Home Medications Comprehensive Discharge Medication List: Ambulatory Orders Acetaminophen [Tylenol] 650 mg PO Q6H PRN 06/23/19 Amlodipine Besylate [Norvasc -] 5 mg PO DAILY 06/23/19 Bacitracin - [Bacitracin Topical Ointment -] 1 appful TP DAILY 06/23/19 Lacosamide Liquid [Vimpat Liquid -] 100 mg PO BID 06/23/19 Polyethylene Glycol 3350 [Miralax 255 gm Btl -] 17 gm PO DAILY 06/23/19 Polyvinyl Alcohol/Povidone/Pf [Refresh Classic Eye Drops] 1 drop OU Q4H Amino Acids/Protein Hydrolys [Prosource No Carb Liquid Pkt] 30 ml PO BID@0800, 1730 packet 06/28/19 Enoxaparin [Lovenox -] 40 mg SQ DAILY disp.syrin 06/28/19 Pantoprazole Suspension [Protonix Packets For Oral Suspension -] 40 mg NGT DAILY packet 06/28/19 levETIRAcetam [Keppra -] 750 mg PO BID tablet 06/28/19
[2019-07-01] MEDS: BACITRACIN 15 GM TUBE TOPICAL OINTMENT TP SCH (11:31)
--- NOTE | 2019-07-01 13:21 | PN ---
Progress Note, ALLEY TENDER - Note Progress Note: Selected Entries 06/30/19 06/30/19 06/30/19 02:30 06:49 10:00 Supper NPO Temperature 97.9 F 97.6 F 98.1 F 06/30/19 06/30/19 06/30/19 17:35 21:39 22:00 Supper NPO NPO Temperature 98.2 F 07/01/19 07/01/19 06:00 10:00 Supper Temperature 98.6 F 97.8 F Patient is not meeting the criteria for Espinoza. NPO per Doctor's orders. ' Continue Communication board/gesture training.
[2019-07-01] MEDS: ACETAMINOPHEN 650 MG/20.3 ML ORAL SOLUTION (CUPS) GT PRN (15:37)
[2019-07-01] MEDS: SENNOSIDES 8.8 MG/5 ML BULK BOTTLE PO SCH (21:51)
--- NOTE | 2019-07-02 07:31 | DS ---
Physical Examination Vital Signs: Vital Signs Temperature 97.4 F L 07/02/19 06:00 Pulse Rate 86 07/02/19 06:00 Respiratory Rate 20 07/02/19 06:00 Blood Pressure 132/81 07/02/19 06:00 O2 Sat by Pulse Oximetry (%) 96 07/01/19 09:00 Cardiovascular: Yes: S1, S2 Respiratory: Yes: Regular, CTA Bilaterally Gastrointestinal: Yes: Normal Bowel Sounds, Soft Neurological: Yes: Alert, Pre-Existing Deficit Labs: CBC, BMP 06/24/19 06:50 06/28/19 07:10 Discharge Summary Problems reviewed: Yes Reason For Visit: BEHAVIORAL CHANGE; URINARY TRACT INFECTION Current Active Problems AMS (altered mental status) (Acute) Epilepsy (Acute) H/O craniotomy (Acute) Hypernatremia (Acute) Metabolic encephalopathy (Acute) Urinary tract infection (Acute) Hospital Course: - Problems (1) AMS (altered mental status) Assessment/Plan: -CT head unremarkable -Neurology consult noted-- -likely 2/2 to metabolic encephalopathy Problems reviewed: Yes Code(s): R41.82 - ALTERED MENTAL STATUS, UNSPECIFIED (2) H/O craniotomy Problems reviewed: Yes Code(s): Z98.890 - OTHER SPECIFIED POSTPROCEDURAL STATES (3) Urinary tract infection Assessment/Plan: -UC: E COLI -PO ABX -ID consult -IV rocephin -afebrile -Leukocytosis resolved Problems reviewed: Yes Code(s): N39.0 - URINARY TRACT INFECTION, SITE NOT SPECIFIED (4) Hypernatremia Assessment/Plan: -Nephrology consult -monitor trend--140 Problems reviewed: Yes Code(s): E87.0 - HYPEROSMOLALITY AND HYPERNATREMIA (5) Metabolic encephalopathy Problems reviewed: Yes Code(s): G93.41 - METABOLIC ENCEPHALOPATHY DC PLANNING -- SNF Condition: Stable - Instructions Referrals: Javid Hernandez MD [Primary Care Provider] - Disposition: ALF FACILITY - Home Medications Comprehensive Discharge Medication List: Ambulatory Orders Acetaminophen [Tylenol] 650 mg PO Q6H PRN 06/23/19 Amlodipine Besylate [Norvasc -] 5 mg PO DAILY 06/23/19 Bacitracin - [Bacitracin Topical Ointment -] 1 appful TP DAILY 06/23/19 Lacosamide Liquid [Vimpat Liquid -] 100 mg PO BID 06/23/19 Polyethylene Glycol 3350 [Miralax 255 gm Btl -] 17 gm PO DAILY 06/23/19 Polyvinyl Alcohol/Povidone/Pf [Refresh Classic Eye Drops] 1 drop OU Q4H Amino Acids/Protein Hydrolys [Prosource No Carb Liquid Pkt] 30 ml PO BID@0800, 1730 packet 06/28/19 Enoxaparin [Lovenox -] 40 mg SQ DAILY disp.syrin 06/28/19 Pantoprazole Suspension [Protonix Packets For Oral Suspension -] 40 mg NGT DAILY packet 06/28/19 levETIRAcetam [Keppra -] 750 mg PO BID tablet 06/28/19
[2019-07-02] MEDS: POLYETHYLENE GLYCOL 3350 119 GM BTL PO SCH (09:42)
[2019-07-02] MEDS ORDERED: PT OWN MED DRAWER 7, Y5N ONE (09:46)
[2019-07-02] MEDS: AMINO ACIDS/PROTEIN HYDROLYS 30 ML LIQUID.PKT PO SCH ×2 (09:47→17:12)
[2019-07-02] MEDS: amLODIPine BESYLATE 5 MG TABLET (FP) PO SCH (09:47)
[2019-07-02] MEDS: Lacosamide 50 MG/5 ML ORAL SOLUTION UNIT CUPS PO SCH (09:47)
[2019-07-02] MEDS: levETIRAcetam 500 MG TABLET (FP) PO SCH ×2 (09:48→21:46)
[2019-07-02] MEDS: FAMOTIDINE 40 MG/5 ML ORAL SUSPENSION NGT SCH ×2 (09:48→21:44)
[2019-07-02] MEDS: CEPHALEXIN 250 MG/5 ML ORAL SUSPENSION GT SCH ×2 (09:53→21:45)
--- NOTE | 2019-07-02 14:09 | PN ---
Progress Note, TESTER VIBRATOR EQUIPMENT - Note Progress Note: Selected Entries 06/30/19 06/30/19 06/30/19 02:30 06:49 10:00 Supper NPO Temperature 97.9 F 97.6 F 98.1 F 06/30/19 06/30/19 06/30/19 17:35 21:39 22:00 Supper NPO NPO Temperature 98.2 F 07/01/19 07/01/19 06:00 10:00 Supper Temperature 98.6 F 97.8 F Patient is not meeting the criteria for Espinoza. NPO per Doctor's orders. ' Continue Communication board/gesture training.
--- NOTE | 2019-07-02 14:10 | PN ---
Progress Note, RESEARCH AND DEVELOPMENT RESEARCHER - Note Progress Note: Selected Entries 07/01/19 07/01/19 07/01/19 06:00 10:00 14:00 Supper Temperature 98.6 F 97.8 F 99.9 F H 07/01/19 07/01/19 07/02/19 17:41 22:37 06:00 Supper NPO Temperature 98.5 F 97.4 F L 07/02/19 09:00 Supper Temperature 98.7 F NPO per Doctor's orders. ' Continue Communication board/gesture training.
[2019-07-02] MEDS: BACITRACIN 15 GM TUBE TOPICAL OINTMENT TP SCH (17:12)
[2019-07-02] MEDS: SENNOSIDES 8.8 MG/5 ML BULK BOTTLE PO SCH (21:44)
[2019-07-03] MEDS ORDERED: PT OWN MED DRAWER 7, Y5N ONE ×2 (08:39→20:12)
[2019-07-03] MEDS: AMINO ACIDS/PROTEIN HYDROLYS 30 ML LIQUID.PKT PO SCH ×2 (09:05→17:24)
[2019-07-03] MEDS: POLYETHYLENE GLYCOL 3350 119 GM BTL PO SCH (09:05)
[2019-07-03] MEDS: CEPHALEXIN 250 MG/5 ML ORAL SUSPENSION GT SCH ×2 (09:05→23:23)
[2019-07-03] MEDS: levETIRAcetam 500 MG TABLET (FP) PO SCH ×2 (09:06→23:16)
[2019-07-03] MEDS: FAMOTIDINE 40 MG/5 ML ORAL SUSPENSION NGT SCH ×2 (09:06→23:16)
[2019-07-03] MEDS: amLODIPine BESYLATE 5 MG TABLET (FP) PO SCH (09:06)
[2019-07-03] MEDS: BACITRACIN 15 GM TUBE TOPICAL OINTMENT TP SCH (09:07)
[2019-07-03] MEDS: ACETAMINOPHEN 650 MG/20.3 ML ORAL SOLUTION (CUPS) GT PRN (09:37)
--- NOTE | 2019-07-03 11:58 | DS ---
Physical Examination Vital Signs: Vital Signs Temperature 98.3 F 07/03/19 09:17 Pulse Rate 79 07/03/19 09:17 Respiratory Rate 20 07/03/19 09:17 Blood Pressure 135/73 07/03/19 09:17 O2 Sat by Pulse Oximetry (%) 96 07/03/19 09:00 Cardiovascular: Yes: S1, S2 Respiratory: Yes: Regular, CTA Bilaterally Gastrointestinal: Yes: Normal Bowel Sounds, Soft Neurological: Yes: Alert Labs: CBC, BMP 06/24/19 06:50 06/28/19 07:10 Discharge Summary Problems reviewed: Yes Reason For Visit: BEHAVIORAL CHANGE; URINARY TRACT INFECTION Current Active Problems AMS (altered mental status) (Acute) Epilepsy (Acute) H/O craniotomy (Acute) Hypernatremia (Acute) Metabolic encephalopathy (Acute) Urinary tract infection (Acute) Hospital Course: - Problems (1) AMS (altered mental status) Assessment/Plan: -CT head unremarkable -Neurology consult noted-- -likely 2/2 to metabolic encephalopathy Problems reviewed: Yes Code(s): R41.82 - ALTERED MENTAL STATUS, UNSPECIFIED (2) H/O craniotomy Problems reviewed: Yes Code(s): Z98.890 - OTHER SPECIFIED POSTPROCEDURAL STATES (3) Urinary tract infection Assessment/Plan: -UC: E COLI -PO ABX -ID consult -IV rocephin -afebrile -Leukocytosis resolved Problems reviewed: Yes Code(s): N39.0 - URINARY TRACT INFECTION, SITE NOT SPECIFIED (4) Hypernatremia Assessment/Plan: -Nephrology consult -monitor trend--140 Problems reviewed: Yes Code(s): E87.0 - HYPEROSMOLALITY AND HYPERNATREMIA (5) Metabolic encephalopathy Problems reviewed: Yes Code(s): G93.41 - METABOLIC ENCEPHALOPATHY DC PLANNING -- SNF Condition: Stable - Instructions Referrals: Javid Hernandez MD [Primary Care Provider] - Disposition: [facility] - Home Medications Comprehensive Discharge Medication List: Ambulatory Orders Acetaminophen [Tylenol] 650 mg PO Q6H PRN 06/23/19 Amlodipine Besylate [Norvasc -] 5 mg PO DAILY 06/23/19 Bacitracin - [Bacitracin Topical Ointment -] 1 appful TP DAILY 06/23/19 Lacosamide Liquid [Vimpat Liquid -] 100 mg PO BID 06/23/19 Polyethylene Glycol 3350 [Miralax 255 gm Btl -] 17 gm PO DAILY 06/23/19 Polyvinyl Alcohol/Povidone/Pf [Refresh Classic Eye Drops] 1 drop OU Q4H Amino Acids/Protein Hydrolys [Prosource No Carb Liquid Pkt] 30 ml PO BID@0800, 1730 packet 06/28/19 Enoxaparin [Lovenox -] 40 mg SQ DAILY disp.syrin 06/28/19 Pantoprazole Suspension [Protonix Packets For Oral Suspension -] 40 mg NGT DAILY packet 06/28/19 levETIRAcetam [Keppra -] 750 mg PO BID tablet 06/28/19
--- NOTE | 2019-07-03 11:58 | PN ---
Progress Note, Physician - Current Medication List Current Medications: Active Medications Acetaminophen (Tylenol Oral Solution -) 650 mg GT Q6H PRN PRN Reason: FEVER Last Admin: 07/03/19 09:37 Dose: 650 mg Amino Acids (Prosource No Carb Liquid Pkt) 30 ml PO BID@0800,1730 [facility] Last Admin: 07/03/19 09:05 Dose: 30 ml Amlodipine Besylate (Norvasc -) 5 mg PO DAILY [facility] Last Admin: 07/03/19 09:06 Dose: 5 mg Bacitracin (Bacitracin -) 1 applic TP DAILY [facility] Last Admin: 07/03/19 09:07 Dose: 1 applic Cephalexin (Keflex Oral Suspension -) 500 mg GT BID [facility] Last Admin: 07/03/19 09:05 Dose: 500 mg Famotidine (Pepcid) 20 mg NGT BID [facility] Last Admin: 07/03/19 09:06 Dose: 20 mg Levetiracetam (Keppra -) 500 mg PO BID [facility] Last Admin: 07/03/19 09:06 Dose: 500 mg Polyethylene Glycol (Miralax (For Daily Use) -) 17 gm PO DAILY [facility] Last Admin: 07/03/19 09:05 Dose: Not Given Senna (Senna Oral Solution -) 8.8 mg PO HS [facility] Last Admin: 07/02/19 21:44 Dose: 8.8 mg - Objective Vital Signs: Vital Signs Temperature 98.3 F 07/03/19 09:17 Pulse Rate 79 07/03/19 09:17 Respiratory Rate 20 07/03/19 09:17 Blood Pressure 135/73 07/03/19 09:17 O2 Sat by Pulse Oximetry (%) 96 07/03/19 09:00 Cardiovascular: Yes: S1, S2 Respiratory: Yes: Regular, CTA Bilaterally Gastrointestinal: Yes: Normal Bowel Sounds, Soft Neurological: Yes: Alert Labs: CBC, BMP 06/24/19 06:50 06/28/19 07:10 INR, PTT INR 1.05 (0.83-1.09) 06/23/19 11:44 Assessment/Plan - Problems (1) AMS (altered mental status) Assessment/Plan: -CT head unremarkable -Neurology consult noted--EEG ordered -likely 2/2 to metabolic encephalopathy Problems reviewed: Yes Code(s): R41.82 - ALTERED MENTAL STATUS, UNSPECIFIED (2) H/O craniotomy Problems reviewed: Yes Code(s): Z98.890 - OTHER SPECIFIED POSTPROCEDURAL STATES (3) Urinary tract infection Assessment/Plan: -UC: Microbiology 06/23/19 12:05 Urine - Urine Nicholson Urine Culture - Preliminary Lactose Fermenting Neg Bacilli Group D Strep Or Entero Coccus 06/23/19 11:44 Blood - Peripheral Venous Blood Culture - Preliminary NO GROWTH OBTAINED AFTER 24 HOURS, INCUBATION TO CONTINUE FOR 4 DAYS. 06/23/19 11:41 Blood - Peripheral Venous Blood Culture - Preliminary NO GROWTH OBTAINED AFTER 24 HOURS, INCUBATION TO CONTINUE FOR 4 DAYS. -ID consult -IV rocephin -afebrile -Leukocytosis resolved Problems reviewed: Yes Code(s): N39.0 - URINARY TRACT INFECTION, SITE NOT SPECIFIED (4) Hypernatremia Assessment/Plan: -Nephrology consult -monitor trend--140 Problems reviewed: Yes Code(s): E87.0 - HYPEROSMOLALITY AND HYPERNATREMIA (5) Metabolic encephalopathy Problems reviewed: Yes Code(s): G93.41 - METABOLIC ENCEPHALOPATHY
[2019-07-03] MEDS: SENNOSIDES 8.8 MG/5 ML BULK BOTTLE PO SCH ×2 (23:15→23:34)
[2019-07-04] MEDS ORDERED: PT OWN MED DRAWER 7, Y5N ONE ×2 (08:57→20:21)
[2019-07-04] MEDS: AMINO ACIDS/PROTEIN HYDROLYS 30 ML LIQUID.PKT PO SCH ×2 (08:58→17:20)
[2019-07-04] MEDS: CEPHALEXIN 250 MG/5 ML ORAL SUSPENSION GT SCH ×2 (09:06→22:44)
[2019-07-04] MEDS: levETIRAcetam 500 MG TABLET (FP) PO SCH ×2 (09:06→22:45)
[2019-07-04] MEDS: amLODIPine BESYLATE 5 MG TABLET (FP) PO SCH (09:07)
[2019-07-04] MEDS: BACITRACIN 15 GM TUBE TOPICAL OINTMENT TP SCH (09:07)
[2019-07-04] MEDS: FAMOTIDINE 40 MG/5 ML ORAL SUSPENSION NGT SCH (09:07)
[2019-07-04] MEDS: POLYETHYLENE GLYCOL 3350 119 GM BTL PO SCH (09:07)
[2019-07-04] MEDS: ACETAMINOPHEN 650 MG/20.3 ML ORAL SOLUTION (CUPS) GT PRN (10:13)
--- NOTE | 2019-07-04 11:21 | DS ---
Physical Examination Vital Signs: Vital Signs Temperature 97.9 F 07/04/19 06:30 Pulse Rate 81 07/04/19 06:30 Respiratory Rate 17 07/04/19 06:30 Blood Pressure 129/73 07/04/19 06:30 O2 Sat by Pulse Oximetry (%) 96 07/03/19 09:00 Cardiovascular: Yes: S1, S2 Respiratory: Yes: Regular, CTA Bilaterally Gastrointestinal: Yes: Normal Bowel Sounds, Soft Neurological: Yes: Alert Labs: CBC, BMP 06/24/19 06:50 06/28/19 07:10 Discharge Summary Problems reviewed: Yes Reason For Visit: BEHAVIORAL CHANGE; URINARY TRACT INFECTION Current Active Problems AMS (altered mental status) (Acute) Epilepsy (Acute) H/O craniotomy (Acute) Hypernatremia (Acute) Metabolic encephalopathy (Acute) Urinary tract infection (Acute) Hospital Course: - Problems (1) AMS (altered mental status) Assessment/Plan: -CT head unremarkable -Neurology consult noted-- -likely 2/2 to metabolic encephalopathy Problems reviewed: Yes Code(s): R41.82 - ALTERED MENTAL STATUS, UNSPECIFIED (2) H/O craniotomy Problems reviewed: Yes Code(s): Z98.890 - OTHER SPECIFIED POSTPROCEDURAL STATES (3) Urinary tract infection Assessment/Plan: -UC: E COLI -PO ABX -ID consult -IV rocephin -afebrile -Leukocytosis resolved Problems reviewed: Yes Code(s): N39.0 - URINARY TRACT INFECTION, SITE NOT SPECIFIED (4) Hypernatremia Assessment/Plan: -Nephrology consult -monitor trend--140 Problems reviewed: Yes Code(s): E87.0 - HYPEROSMOLALITY AND HYPERNATREMIA (5) Metabolic encephalopathy Problems reviewed: Yes Code(s): G93.41 - METABOLIC ENCEPHALOPATHY DC PLANNING -- SNF Condition: Stable - Instructions Referrals: Javid Hernandez MD [Primary Care Provider] - Disposition: [facility] - Home Medications Comprehensive Discharge Medication List: Ambulatory Orders Acetaminophen [Tylenol] 650 mg PO Q6H PRN 06/23/19 Amlodipine Besylate [Norvasc -] 5 mg PO DAILY 06/23/19 Bacitracin - [Bacitracin Topical Ointment -] 1 appful TP DAILY 06/23/19 Lacosamide Liquid [Vimpat Liquid -] 100 mg PO BID 06/23/19 Polyethylene Glycol 3350 [Miralax 255 gm Btl -] 17 gm PO DAILY 06/23/19 Polyvinyl Alcohol/Povidone/Pf [Refresh Classic Eye Drops] 1 drop OU Q4H Amino Acids/Protein Hydrolys [Prosource No Carb Liquid Pkt] 30 ml PO BID@0800, 1730 packet 06/28/19 Enoxaparin [Lovenox -] 40 mg SQ DAILY disp.syrin 06/28/19 Pantoprazole Suspension [Protonix Packets For Oral Suspension -] 40 mg NGT DAILY packet 06/28/19 levETIRAcetam [Keppra -] 750 mg PO BID tablet 06/28/19
[2019-07-04] MEDS: SENNOSIDES 8.8 MG/5 ML BULK BOTTLE PO SCH (22:45)
[2019-07-05] MEDS: FAMOTIDINE 40 MG/5 ML ORAL SUSPENSION NGT SCH ×3 (00:45→21:29)
--- NOTE | 2019-07-05 07:36 | PN ---
Progress Note (short form) - Note Progress Note: PATIENT AWAKE ALERT NO EVENTS OVERNIGHT NPO DUE TO DYSPHAGIA CAN TRY TO WORK ON THIS OUTPATIENT SNF. NOW CONTINUE TUBE FEEDS, STRENGTHEN AND INCREASE NUTRITION FOR SURGERY NEXT MONTH Jul CRANIAL SX. DC PLANNING COMPLETED, I SPOKE TO MR MORALEZ THE THIS MORNING WHO IS VISITING A SNF IN [place], [place], AND [place], [place]. PAPERWORK COMPLETE Problem List - Problems (1) H/O craniotomy Code(s): Z98.890 - OTHER SPECIFIED POSTPROCEDURAL STATES (2) Urinary tract infection Code(s): N39.0 - URINARY TRACT INFECTION, SITE NOT SPECIFIED (3) Tracheostomy complication, unspecified Code(s): J95.00 - UNSPECIFIED TRACHEOSTOMY COMPLICATION
[2019-07-05] MEDS: AMINO ACIDS/PROTEIN HYDROLYS 30 ML LIQUID.PKT PO SCH ×2 (08:25→17:08)
[2019-07-05] MEDS: amLODIPine BESYLATE 5 MG TABLET (FP) PO SCH (10:46)
[2019-07-05] MEDS: POLYETHYLENE GLYCOL 3350 119 GM BTL PO SCH (10:46)
[2019-07-05] MEDS: levETIRAcetam 500 MG TABLET (FP) PO SCH ×2 (10:46→21:29)
[2019-07-05] MEDS: BACITRACIN 15 GM TUBE TOPICAL OINTMENT TP SCH (10:47)
--- NOTE | 2019-07-05 16:49 | PN ---
Progress Note, [employer] - Note Progress Note: Selected Entries 07/05/19 07/05/19 07/05/19 02:16 06:48 09:25 Lunch Temperature 98.5 F 98.3 F 98.3 F 07/05/19 15:58 Lunch NPO Temperature 98.6 F Pt's asking me again about PEG removal. Reviewed MBS and rec for intensive swallowing tx at [facility] with PO trials when Speech Pathology believes she is ready. Repeat MBS/FEES may be indicated to r/o silent aspiration. I told him I would NOT remove PEG, even when she is eating, as I believe it will ; be needed to supplement PO nutrition, hydration, meds and given stability and access when she has setbacks. He seemed to understand and agree.
[2019-07-05] MEDS ORDERED: PT OWN MED DRAWER 7, Y5N ONE (20:52)
[2019-07-05] MEDS: SENNOSIDES 8.8 MG/5 ML BULK BOTTLE PO SCH (21:29)
--- NOTE | 2019-07-06 08:44 | DS ---
Physical Examination Vital Signs: Vital Signs Temperature 98.7 F 07/06/19 06:00 Pulse Rate 83 07/06/19 06:00 Respiratory Rate 20 07/06/19 06:00 Blood Pressure 157/92 07/06/19 06:00 O2 Sat by Pulse Oximetry (%) 98 07/05/19 23:19 Cardiovascular: Yes: Regular Rate and Rhythm Respiratory: Yes: Regular, CTA Bilaterally Gastrointestinal: Yes: Normal Bowel Sounds, Soft Neurological: Yes: Alert Labs: CBC, BMP 06/24/19 06:50 06/28/19 07:10 Discharge Summary Problems reviewed: Yes Reason For Visit: BEHAVIORAL CHANGE; URINARY TRACT INFECTION Current Active Problems AMS (altered mental status) (Acute) Epilepsy (Acute) H/O craniotomy (Acute) Hypernatremia (Acute) Metabolic encephalopathy (Acute) Urinary tract infection (Acute) Hospital Course: - Problems (1) AMS (altered mental status) Assessment/Plan: -Improved -CT head unremarkable for acute path -Neurology consult noted--meds adjusted per neuro -likely 2/2 to metabolic encephalopathy Problems reviewed: Yes Code(s): R41.82 - ALTERED MENTAL STATUS, UNSPECIFIED (2) H/O craniotomy Problems reviewed: Yes Code(s): Z98.890 - OTHER SPECIFIED POSTPROCEDURAL STATES (3) Urinary tract infection Assessment/Plan: -UC: E COLI -completed abx -afebrile -Leukocytosis resolved Problems reviewed: Yes Code(s): N39.0 - URINARY TRACT INFECTION, SITE NOT SPECIFIED (4) Hypernatremia Assessment/Plan: -Nephrology consult -monitor trend--140 Problems reviewed: Yes Code(s): E87.0 - HYPEROSMOLALITY AND HYPERNATREMIA (5) Metabolic encephalopathy Problems reviewed: Yes Code(s): G93.41 - METABOLIC ENCEPHALOPATHY DC PLANNING -- SNF Condition: Stable - Instructions Referrals: Javid Hernandez MD [Primary Care Provider] - Disposition: [facility] - Home Medications Comprehensive Discharge Medication List: Ambulatory Orders Acetaminophen [Tylenol] 650 mg PO Q6H PRN 06/23/19 Amlodipine Besylate [Norvasc -] 5 mg PO DAILY 06/23/19 Bacitracin - [Bacitracin Topical Ointment -] 1 appful TP DAILY 06/23/19 Lacosamide Liquid [Vimpat Liquid -] 100 mg PO BID 06/23/19 Polyethylene Glycol 3350 [Miralax 255 gm Btl -] 17 gm PO DAILY 06/23/19 Polyvinyl Alcohol/Povidone/Pf [Refresh Classic Eye Drops] 1 drop OU Q4H Amino Acids/Protein Hydrolys [Prosource No Carb Liquid Pkt] 30 ml PO BID@0800, 1730 packet 06/28/19 Enoxaparin [Lovenox -] 40 mg SQ DAILY disp.syrin 06/28/19 Pantoprazole Suspension [Protonix Packets For Oral Suspension -] 40 mg NGT DAILY packet 06/28/19 levETIRAcetam [Keppra -] 750 mg PO BID tablet 06/28/19
[2019-07-06] MEDS ORDERED: PT OWN MED DRAWER 7, Y5N ONE (09:15)
[2019-07-06] MEDS: ACETAMINOPHEN 650 MG/20.3 ML ORAL SOLUTION (CUPS) GT PRN (09:20)
[2019-07-06] MEDS: AMINO ACIDS/PROTEIN HYDROLYS 30 ML LIQUID.PKT PO SCH (09:20)
[2019-07-06] MEDS: levETIRAcetam 500 MG TABLET (FP) PO SCH (09:20)
[2019-07-06] MEDS: amLODIPine BESYLATE 5 MG TABLET (FP) PO SCH (09:21)
[2019-07-06] MEDS: POLYETHYLENE GLYCOL 3350 119 GM BTL PO SCH (09:21)
[2019-07-06 10:09] VITALS: BMI 22.1
[2019-07-06 10:47] VITALS: BP 125/71; PULSE 82; TEMP 97.6
[2019-07-06] MEDS: BACITRACIN 15 GM TUBE TOPICAL OINTMENT TP SCH (11:12)
[2019-07-06] MEDS: FAMOTIDINE 40 MG/5 ML ORAL SUSPENSION NGT SCH (11:12)
== END 2019-07-06 12:01 | DRG 689 ==
LOC: JER 11:01 → INTOOBSV 13:45 → JERBED 13:45 → OBSVTOIN 14:48 → J7W 17:33 → J4S 06-25 15:49 → J8W 06-30 15:53
PROVIDERS: ADMIT Family Medicine; ATTEND Family Medicine
DX: N39.0 Urinary tract infection, site not specified (principal); G93.41 Metabolic encephalopathy; G81.91 Hemiplegia, unspecified affecting right dominant side; E87.0 Hyperosmolality and hypernatremia; J95.00 Unspecified tracheostomy complication; R47.01 Aphasia; B96.20 Unspecified Escherichia coli [E. coli] as the cause of diseases classified elsewhere; E86.0 Dehydration; D72.829 Elevated white blood cell count, unspecified; I67.1 Cerebral aneurysm, nonruptured; G51.0 Bell's palsy; E83.52 Hypercalcemia; G40.909 Epilepsy, unspecified, not intractable, without status epilepticus; R41.82 Altered mental status, unspecified; Z86.73 Personal history of transient ischemic attack (TIA), and cerebral infarction without residual deficits; Z98.890 Other specified postprocedural states; Z93.1 Gastrostomy status
CPT/HCPCS: 36415; 70450-TC; 71045-TC-FY; 74230-TC-FY; 80048; 80053; 81003; 82803; 82962; 83605; 83735; 84439; 84443; 84484; 85025; 85027; 85610; 85730; 87040; 87086; 87186; 87804; 92611-GN; 93005; 93010; 95951; 97116-GP; 97162-GP; 99284-25; G0378; J1100; J1644